=== PATIENT | female | born 1950 | race Caucasian/White ===

== ENCOUNTER 2017-10-24 13:29 | Emergency (ER) | payer OTHER, SELFPAY ==
[2017-10-24 13:34] VITALS: BP 201/95; PULSE 77; RESP 20; TEMP 36.4; O2SAT 96
--- NOTE | 2017-10-24 13:42 | PC.NURSE ---
pt is here to get medication refilled.
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
== END 2017-10-24 15:00 | disposition home or self-care (01) ==
PROVIDERS: Emergency Provider Internal Medicine
DX: F10.239 Alcohol dependence with withdrawal, unspecified (principal)
CPT/HCPCS: 99282

== ENCOUNTER → 2017-12-02 14:20 | Outpatient (CLI) | payer OTHER, SELFPAY ==
[2017-12-02 15:08] LABS: Add Manual Diff / Slide Review NO; Basophils Percent Auto 1.1 % (0-2); Eosinophils Percent Auto 5.1 % (2-4); Hematocrit 41.5 % (36-46); Hemoglobin 14.2 g/dL (12.0-16.0); Lymphocytes Percent Auto 33.7 % (25-40); Mean Corpuscular HGB Conc 34.2 % (30-36); Mean Corpuscular Hemoglobin 31.1 PG (26-34); Mean Corpuscular Volume 90.8 fL (80-100); Monocytes Percent Auto 9.1 % (3-14); Neutrophils Absolute Auto 3200 /uL (3000-5900); Platelet Count 144 X10^3/uL (150-400); Red Blood Cell Count 4.57 X10^6/uL (4.0-5.2); Red Cell Distribution Width 12.9 % (11.6-14.8); White Blood Cell Count 6.3 X10^3/uL (4.5-11.0)
[2017-12-02 15:16] LABS: Hemoglobin A1C% w Est Avg Glu 7.1 % (4.0-6.0)
[2017-12-02 15:24] LABS: Alanine Aminotransferase 37 IU/L (9-52); Albumin Globulin Ratio 1.1 (1.0-2.8); Alkaline Phosphatase 77 U/L (38-126); Aspartate Aminotransferase 37 IU/L (14-36); BUN Creatinine Ratio 18.3 (6-22); Bilirubin Total 0.5 mg/dL (0.2-1.3); Blood Urea Nitrogen 11 mg/dL (7-17); Calcium 8.9 mg/dL (8.4-10.2); Carbon Dioxide 29 mmol/L (22-32); Chloride 103 mmol/L (98-107); Cholesterol 181 mg/dL (140-199); Estimated Glomerular Filt Rate > 60.0 mL/min (>60); Globulin 3.5 g/dL (1.7-4.1); Glucose 192 mg/dL (80-110); HDL Cholesterol 34 mg/dL (40-60); HEMOLYSIS < 15 (0-50); Potassium 3.9 mmol/L (3.4-5.1); Sodium 141 mmol/L (137-145); Total Protein 7.5 g/dL (6.3-8.2); Triglycerides 477 mg/dL (35-150)
== END ==
PROVIDERS: Visit Provider Internal Medicine
DX: Z13.220 Encounter for screening for lipoid disorders (principal); E11.9 Type 2 diabetes mellitus without complications; I25.10 Atherosclerotic heart disease of native coronary artery without angina pectoris
CPT/HCPCS: 36415; 80053; 80061; 83036; 85025

== ENCOUNTER → 2018-01-13 18:00 | Outpatient (CLI) | payer MEDICARE, OTHER, SELFPAY | PROVIDERS: Visit Provider Physician Assistant | DX: R30.0 Dysuria (principal) | CPT/HCPCS: 87077; 87086; 87186 ==

== ENCOUNTER 2018-09-09 15:58 | Emergency (ER) | payer MEDICARE, OTHER, SELFPAY ==
[2018-09-09 16:02] VITALS: BP 158/86; PULSE 71; RESP 20; TEMP 36.8; O2SAT 97; BMI 32.1
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
[2018-09-09 16:52] LABS: INR 1.1 (0.9-1.3); Prothrombin Time 12.2 SECONDS (10.1-12.7)
[2018-09-09 16:55] LABS: Add Manual Diff / Slide Review NO; Basophils Absolute Auto 100 /uL (0-100); Eosinophils Absolute Auto 200 /uL (0-450); Eosinophils Percent Auto 2.7 % (2-4); Hematocrit 44.4 % (36-46); Hemoglobin 15.1 g/dL (12.0-16.0); Lymphocytes Absolute Auto 2500 /uL (1100-4500); Lymphocytes Percent Auto 30.6 % (25-40); Mean Corpuscular Volume 91.2 fL (80-100); Monocytes Absolute Auto 600 /uL (0-900); Neutrophils Absolute Auto 4600 /uL (1500-7000); Neutrophils Percent Auto 57.7 % (50-75); PTT Partial Thromboplastin Tim 36 SECONDS (26.4-36.2); Platelet Count 208 X10^3/uL (150-400); Red Blood Cell Count 4.87 X10^6/uL (4.0-5.2); Red Cell Distribution Width 12.7 % (11.6-14.8)
[2018-09-09 16:56] LABS: Alanine Aminotransferase 36 IU/L (9-52); Albumin Globulin Ratio 1.1 (1.0-2.8); Alkaline Phosphatase 86 U/L (38-126); Aspartate Aminotransferase 39 IU/L (14-36); BUN Creatinine Ratio 21.4 (6-22); Bilirubin Total 0.5 mg/dL (0.2-1.3); Blood Urea Nitrogen 15 mg/dL (7-17); Calcium 9.1 mg/dL (8.4-10.2); Carbon Dioxide 28 mmol/L (22-32); Chloride 106 mmol/L (98-107); Estimated Glomerular Filt Rate > 60.0 mL/min (>60); Globulin 3.7 g/dL (1.7-4.1); Glucose 126 mg/dL (80-110); HEMOLYSIS 16 (0-50); Lipase 153 U/L (23-300); Potassium 4.3 mmol/L (3.4-5.1); Sodium 141 mmol/L (137-145); Total Protein 7.7 g/dL (6.3-8.2)
[2018-09-09 17:33] LABS: RBC Urine None Seen (0-5/HPF)
[2018-09-09 17:46] VITALS: BP 159/89; PULSE 64; RESP 14; TEMP 36.8; O2SAT 96
[2018-09-09 17:51] LABS: Bacteria Urine Many (>30); WBC Urine 1-5/HPF (0-5/HPF)
[2018-09-09 17:52] LABS: Culture Indicated Urine Specimen Cultured
== END 2018-09-09 17:46 | disposition home or self-care (01) ==
PROVIDERS: Emergency Provider Emergency Medicine
DX: K57.92 Diverticulitis of intestine, part unspecified, without perforation or abscess without bleeding (principal); N39.0 Urinary tract infection, site not specified; I10 Essential (primary) hypertension
CPT/HCPCS: 36591; 80053; 81003; 81015; 83690; 85025; 85610; 85730; 87077; 87086; 87186; 93005; 99283; 99284

== ENCOUNTER 2019-03-23 03:02 | Emergency (ER) | payer MEDICARE, OTHER, SELFPAY ==
[2019-03-23 03:09] VITALS: BP 210/88; PULSE 68; RESP 20; TEMP 37; O2SAT 97
--- NOTE | 2019-03-23 03:14 | PC.NURSE ---
Pt Woke up with sob and head tingling. states these are symptoms when her blood pressure is high. Was unable to get BP reading on home machine. Denies any chest pain or any other pain at this time.
--- NOTE | 2019-03-23 03:21 | ED_ITS ---
HPI - General Adult General Chief complaint: Hypertension Stated complaint: high blood pressure Time Seen by Provider: 03/23/19 03:09 Source: patient Mode of arrival: Ambulatory Limitations: no limitations History of Present Illness HPI narrative: 68-year-old female with a history of hypertension. Is on atenolol and lisinopril. States she normally takes her medications at night. She states she did take her medication last night. She stated that as the evening went on she started to get some chest pressure and some tingling in the back of her head. She states that she normally gets the symptoms when her blood pressure elevates. She states that she tried to take her blood pressure at home however would not Renal on her home blood pressure monitor so she came to the emergency department for evaluation. States that she normally runs with systolic blood pressures in the 140s to 150s. States that she really only takes her blood pressure when she feels like this. Related Data Home Medications Medication Instructions Recorded Confirmed albuterol sulfate 1.25 mg INHALATION Q4H PRN 10/04/17 06/29/18 aspirin 325 mg tablet 325 mg PO DAILY 10/04/17 06/29/18 atenolol 50 mg tablet 50 mg PO DAILY 10/04/17 06/29/18 estradiol 1 mg tablet 1 mg PO DAILY 10/04/17 06/29/18 gabapentin 300 mg capsule 900 mg PO TID cap 10/04/17 06/29/18 lisinopril 20 mg tablet 40 mg PO DAILY 10/04/17 06/29/18 metformin 500 mg tablet 500 mg PO QPM tab 10/04/17 06/29/18 zolpidem 5 mg tablet 5 - 10 mg PO BEDTIME PRN 10/04/17 06/29/18 albuterol sulfate 2 puff INHALATION Q4H PRN 10/24/17 06/29/18 lisinopril 20 mg PO QPM 10/24/17 06/29/18 Previous Rx's Medication Instructions Recorded ciprofloxacin HCl 500 mg PO BID #20 tab 09/09/18 metronidazole [Flagyl] 500 mg PO TID #30 tab 09/09/18 Allergies Allergy/AdvReac Type Severity Reaction Status Date / Time cephalexin [From Keflex] Allergy Severe nausea and Verified 09/09/18 16:09 vomiting erythromycin base Allergy Intermediate skin rash, Verified 09/09/18 16:09 hives belladonna alkaloids Allergy Verified 09/09/18 16:09 metoclopramide [From Reglan] Allergy Verified 09/09/18 16:09 prochlorperazine AdvReac Severe psych Verified 09/09/18 16:09 [From Compazine] reaction amlodipine AdvReac Intermediate headache Verified 09/09/18 16:09 and flushing levofloxacin [From Levaquin] AdvReac Intermediate other Verified 09/09/18 16:09 hydrochlorothiazide AdvReac Mild muscle Verified 09/09/18 16:09 cramps nifedipine [From Procardia] AdvReac Unknown intolerance Verified 09/09/18 16:09 Review of Systems Constitutional Constitutional: Denies fatigue and Denies headache(s) ENT Ears, Nose, Mouth, and Throat: Denies headache(s) and Denies sore throat Cardiovascular Comments: Chest pressure Respiratory Respiratory: Denies cough Gastrointestinal Gastrointestinal: Denies abdominal pain, Denies nausea and Denies vomiting Genitourinary Genitourinary: Denies dysuria Musculoskeletal Musculoskeletal: Denies arthralgias Integumentary/Breasts Skin/Breast: Denies rash Neurologic Neurologic: Denies headache(s) Comments: Tingling in her head Endocrine Endocrine: Denies fatigue Hematologic/Lymphatic Hematologic/Lymphatic: Denies easy bleeding and Denies easy bruising Patient History Medical History Chronic pain syndrome (Acute) Hyperlipidemia associated with type 2 diabetes mellitus (Acute) Hypertension associated with diabetes (Acute) Musculoskeletal disorder (Acute) Non-insulin dependent type 2 diabetes mellitus (Acute) Social History Smoking Status: Current every day smoker Smoking Status: Current every day smoker alcohol intake frequency: 0-2 drinks per day Substance Use Type: marijuana Exam Initial Vital Signs Initial Vital Signs: Vital Signs Temperature 98.6 F 03/23/19 03:09 Pulse Rate 68 03/23/19 03:09 Respiratory Rate 20 03/23/19 03:09 Blood Pressure 210/88 H 03/23/19 03:09 Pulse Oximetry 97 03/23/19 03:09 Const General: cooperative and comfortable Orientation: alert and awake HENMT Head: normal to inspection and normocephalic Resp Effort & Inspection: normal respiratory effort Auscultation: clear to auscultation bilaterally Cardio Rate: regular rate Rhythm: regular rhythm Pulses: radial pulses present GI Inspection: non-distended Palpation: soft and No firm Skin Rashes: no rashes Neuro General: alert and awake Cognition: normal cognition Speech: speech normal Extrem General: No edema Psych Appearance: grossly normal and well kempt Course Orders Ordered: ED Orders 03/23/19 03:13 EKG-12 Lead Stat Vital Signs Vital signs: Vital Signs - 8 hr 03/23/19 03:09 03/23/19 03:29 03/23/19 03:47 Temperature 98.6 F Pulse Rate 68 57 L 54 L Respiratory Rate 20 22 16 Blood Pressure 210/88 H Blood Pressure [Right Arm] 182/85 H 157/76 H Pulse Oximetry 97 97 03/23/19 04:13 Temperature Pulse Rate 57 L Respiratory Rate 16 Blood Pressure Blood Pressure [Right Arm] 155/69 H Pulse Oximetry Medical Decision Making ECG Data Attestation: I personally reviewed and interpreted this ECG as follows: Prior ECG tracings: not available for review Interpretation: Sinus bradycardia Ventricular rate of 59 Normal axis Normal QRS Normal QTC No ST T wave changes MDM Narrative Medical decision making narrative: Patient did have slightly elevated blood pressure upon arrival however this improved with placing her in a quiet room with the lights off. She states that her symptoms have completely resolved. Her EKG is unremarkable. Low suspicion for ACS. Low suspicion for interce rebral hemorrhage. We did discuss blood pressure. We discussed importance of taking her blood pressure at home. Will hold on further workup for now. I for follow-up with her primary provider. She expressed understanding and agreement plan. Discharge Plan Departure Patient Disposition: Home Clinical Impression: Hypertension Instructions: DI for High Blood Pressure Activity Restrictions/Additional Instructions: Recommend that you continue all of your medications as directed. Contact your primary provider for follow-up. Return to the emergency department for any new or worsening symptoms Prescriptions: No Action metformin 500 mg tablet 500 mg PO QPM RF: 0 albuterol sulfate 2.5 mg /3 mL (0.083 %) solution for nebulization 1.25 mg INHALATION Q4H PRN (Reason: Shortness Of Breath) RF: 0 aspirin 325 mg tablet 325 mg PO DAILY RF: 0 lisinopril 20 mg tablet 40 mg PO DAILY RF: 0 estradiol [Estrace] 1 mg tablet 1 mg PO DAILY RF: 0 gabapentin 300 mg capsule 900 mg PO TID RF: 0 zolpidem 5 mg tablet 5 - 10 mg PO BEDTIME PRN (Reason: Sleep) RF: 0 atenolol 50 mg tablet 50 mg PO DAILY RF: 0 lisinopril 20 mg Tablet 20 mg PO QPM RF: 0 albuterol sulfate 90 mcg/actuation Hfa Aerosol Inhaler 2 puff INHALATION Q4H PRN (Reason: Wheezing) RF: 0 metronidazole [Flagyl] 500 mg tablet 500 mg PO TID Qty: 30 RF: 0 ciprofloxacin HCl 500 mg tablet 500 mg PO BID Qty: 20 RF: 0
[2019-03-23 03:29] VITALS: BP 182/85; PULSE 57; RESP 22
[2019-03-23 03:47] VITALS: BP 157/76; PULSE 54; RESP 16; O2SAT 97
[2019-03-23 04:13] VITALS: BP 155/69; PULSE 57; RESP 16
== END 2019-03-23 04:29 | disposition home or self-care (01) ==
PROVIDERS: Emergency Provider Emergency Medicine
DX: I10 Essential (primary) hypertension (principal)
CPT/HCPCS: 93005; 93010; 99283

== ENCOUNTER 2019-03-25 15:27 | Emergency (ER) | payer MEDICARE, OTHER, SELFPAY ==
[2019-03-25 15:59] VITALS: BP 183/91; PULSE 62; RESP 18; TEMP 37.1; O2SAT 94; BMI 32.5
--- NOTE | 2019-03-25 16:00 | DI.RAD.S_ITS ---
PROCEDURE: XR CHEST 1V INDICATIONS: chest pain TECHNIQUE: One view of the chest was acquired. COMPARISON: None. FINDINGS: Surgical changes and devices: None. Lungs and pleura: Lungs are clear. No pleural effusions or pneumothorax. Mediastinum: Mediastinal contours appear normal. Heart size is normal. Bones and chest wall: No suspicious bony lesions. Overlying soft tissues appear unremarkable. IMPRESSION: 1. No acute cardiopulmonary disease. Dictated by: Hola Kendrick M.D. on 03/25/2019 at 15:35 Approved by: Hola Kendrick M.D. on 03/25/2019 at 15:36
[2019-03-25 16:36] LABS: Add Manual Diff / Slide Review NO; Basophils Absolute Auto 100 /uL (0-100); Basophils Percent Auto 1.2 % (0-2); Eosinophils Absolute Auto 200 /uL (0-450); Eosinophils Percent Auto 2.9 % (2-4); Hematocrit 43.2 % (36-46); Hemoglobin 15.2 g/dL (12.0-16.0); Lymphocytes Absolute Auto 1700 /uL (1100-4500); Lymphocytes Percent Auto 26.3 % (25-40); Mean Corpuscular HGB Conc 35.1 % (30-36); Mean Corpuscular Hemoglobin 31.5 PG (26-34); Mean Corpuscular Volume 89.7 fL (80-100); Monocytes Absolute Auto 500 /uL (0-900); Neutrophils Absolute Auto 4000 /uL (1500-7000); Neutrophils Percent Auto 61.6 % (50-75); Platelet Count 154 X10^3/uL (150-400); Red Blood Cell Count 4.81 X10^6/uL (4.0-5.2); Red Cell Distribution Width 12.5 % (11.6-14.8); White Blood Cell Count 6.4 X10^3/uL (4.5-11.0)
[2019-03-25 16:40] LABS: INR 1.1 (0.9-1.3); Prothrombin Time 12.5 SECONDS (10.1-12.7)
[2019-03-25 16:43] LABS: PTT Partial Thromboplastin Tim 35 SECONDS (26.4-36.2)
[2019-03-25 16:46] LABS: Alanine Aminotransferase 36 IU/L (<35); Albumin 4.3 g/dL (3.5-5.0); Albumin Globulin Ratio 1.2 (1.0-2.8); Alkaline Phosphatase 85 U/L (38-126); Aspartate Aminotransferase 48 IU/L (14-36); BUN Creatinine Ratio 14.4 (6-22); Bilirubin Total 1.1 mg/dL (0.2-1.3); Blood Urea Nitrogen 13 mg/dL (7-17); Calcium 9.5 mg/dL (8.4-10.2); Carbon Dioxide 29 mmol/L (22-32); Chloride 102 mmol/L (98-107); Creatine Kinase 61 U/L (30-135); Estimated Glomerular Filt Rate > 60.0 mL/min (>60); Globulin 3.6 g/dL (1.7-4.1); Glucose 161 mg/dL (80-110); HEMOLYSIS < 15 (0-50); Lipase 121 U/L (23-300); Potassium 3.8 mmol/L (3.4-5.1); Sodium 142 mmol/L (137-145); Total Protein 7.9 g/dL (6.3-8.2)
[2019-03-25 16:57] LABS: Troponin I < 0.012 ng/mL (0.01-0.034)
[2019-03-25 17:10] VITALS: BP 158/76; PULSE 57; RESP 18; O2SAT 98
--- NOTE | 2019-03-25 17:50 | DI.CT.S_ITS ---
PROCEDURE: CT HEAD/BRAIN WO CON INDICATIONS: hypertension, with headache, blurry vision TECHNIQUE: Noncontrast 4.5 mm thick angled axial sections acquired from the foramen magnum to the vertex, with coronal and sagittal reformats. For radiation dose reduction, the following was used: automated exposure control, adjustment of mA and/or kV according to patient size. COMPARISON: None. FINDINGS: Image quality: Excellent. CSF spaces: Basal cisterns are patent. No extra-axial fluid collections. The ventricles are symmetric in size and shape. Brain: No intracranial bleeds or masses. There is cerebral volume loss for age, with resultant ventricular and sulcal prominence. There are periventricular and deep white matter chronic small vessel ischemic changes. There is intracranial internal carotid artery atherosclerosis. Skull and face: Calvarium and visualized facial bones appear intact, without suspicious lesions. Sinuses: Visualized sinuses and mastoids are clear. IMPRESSION: No CT evidence of acute intracranial pathology. Dictated by: Lior Lee M.D. on 03/25/2019 at 18:58 Approved by: Lior Lee M.D. on 03/25/2019 at 18:59
--- NOTE | 2019-03-25 17:54 | ED.GENADULT ---
HPI - General Adult <Maddison Mccauley STAMPING OPERATOR-BC - Last Filed: 03/25/19 19:55> General Chief complaint: Hypertension Stated complaint: High BP 226/110 Time Seen by Provider: 03/25/19 17:25 Source: patient and family Mode of arrival: Ambulatory Limitations: no limitations History of Present Illness HPI narrative: The patient is a 68-year-old female current smoker with history of hypertension who presents with a chief complaint of hypertension. She was at this facility on 03/23 with similar complaints. She takes atenolol and lisinopril every day. Since her visit 2 days ago, she has increased her lisinopril to 20 mg b.i.d. on her own accord. She also takes atenolol 50 mg daily. She states that she feels her blood pressure rise at home, that has blurry vision, head tingling and shortness of breath with chest pain. She currently denies blurry vision severe headache shortness of breath or chest pain. She states that her blood pressure has decreased since her arrival to the emergency department and she feels much better. She states she has not followed up with primary care provider regarding her hypertension since her previous visit. She states that since her visit on Tuesday, she has been taking her blood pressure every hour with her wrist home monitor. Related Data Home Medications Medication Instructions Recorded Confirmed albuterol sulfate 1.25 mg INHALATION Q4H PRN 10/04/17 06/29/18 aspirin 325 mg tablet 325 mg PO DAILY 10/04/17 06/29/18 atenolol 50 mg tablet 50 mg PO DAILY 10/04/17 06/29/18 estradiol 1 mg tablet 1 mg PO DAILY 10/04/17 06/29/18 gabapentin 300 mg capsule 900 mg PO TID cap 10/04/17 06/29/18 lisinopril 20 mg tablet 40 mg PO DAILY 10/04/17 06/29/18 metformin 500 mg tablet 500 mg PO QPM tab 10/04/17 06/29/18 zolpidem 5 mg tablet 5 - 10 mg PO BEDTIME PRN 10/04/17 06/29/18 albuterol sulfate 2 puff INHALATION Q4H PRN 10/24/17 06/29/18 lisinopril 20 mg PO QPM 10/24/17 06/29/18 Previous Rx's Medication Instructions Recorded ciprofloxacin HCl 500 mg PO BID #20 tab 09/09/18 metronidazole [Flagyl] 500 mg PO TID #30 tab 09/09/18 Allergies Allergy/AdvReac Type Severity Reaction Status Date / Time cephalexin [From Keflex] Allergy Severe nausea and Verified 09/09/18 16:09 vomiting erythromycin base Allergy Intermediate skin rash, Verified 09/09/18 16:09 hives belladonna alkaloids Allergy Verified 09/09/18 16:09 metoclopramide [From Reglan] Allergy Verified 09/09/18 16:09 prochlorperazine AdvReac Severe psych Verified 09/09/18 16:09 [From Compazine] reaction amlodipine AdvReac Intermediate headache Verified 09/09/18 16:09 and flushing levofloxacin [From Levaquin] AdvReac Intermediate other Verified 09/09/18 16:09 hydrochlorothiazide AdvReac Mild muscle Verified 09/09/18 16:09 cramps nifedipine [From Procardia] AdvReac Unknown intolerance Verified 09/09/18 16:09 Review of Systems <ONUR Kamara - Last Filed: 03/25/19 19:55> Review of Systems Narrative: GENERAL: Denies chills, fatigue, malaise, fever, sweats. HEENT: Denies sinus pain, ear pain, sore throat, difficulty swallowing, dizziness. RESPIRATORY: Denies dyspnea, cough, wheezing, hemoptysis, sputum. CARDIOVASCULAR: See HPI GASTROINTESTINAL: Denies nausea, vomiting, abdominal pain, diarrhea, constipation, melena. : Denies dysuria, frequency, incontinence, hematuria, urinary retention. MUSCULOSKELETAL: denies weakness, joint pain, or bony pain SKIN: Denies rash, skin lesions, or other NEUROLOGIC: See HPI PSYCHIATRIC: No concerning psychosocial issues. 12 point review of systems is negative except for those stated above Patient History <ONUR Kamara - Last Filed: 03/25/19 19:55> Medical History Chronic pain syndrome (Acute) Hyperlipidemia associated with type 2 diabetes mellitus (Acute) Hypertension associated with diabetes (Acute) Musculoskeletal disorder (Acute) Non-insulin dependent type 2 diabetes mellitus (Acute) Surgical History H/O hysterectomy with oophorectomy (Acute) Social History Smoking Status: Current every day smoker Smoking Status: Current every day smoker alcohol intake frequency: 0-2 drinks per day Substance Use Type: marijuana Exam <ONUR Kamara - Last Filed: 03/25/19 19:55> Narrative Exam Narrative: GENERAL: This is a well-nourished, well-developed patient, in no acute distress HEAD: Atraumatic. Normocephalic. No temporal or scalp tenderness. EYES: Pupils equal round and reactive. Extraocular motions intact. No scleral icterus. No injection or drainage. ENT: Nose without bleeding, purulent drainage or septal hematoma. Throat without erythema, tonsillar hypertrophy or exudate. Uvula midline. Airway patent. NECK: Trachea midline. No JVD or lymphadenopathy. Supple, nontender, no meningeal signs. CARDIOVASCULAR: Regular rate and rhythm without murmurs, gallops, or rubs. RESPIRATORY: Clear to auscultation. Breath sounds equal bilaterally. No wheezes, rales, or rhonchi. No cough. No increased respiratory effort. No accessory muscle use. GASTROINTESTINAL: Abdomen soft, non-tender, nondistended. No hepato-splenomegaly, or palpable masses. No guarding. EXTREMITIES: No clubbing, cyanosis, or edema. No joint tenderness, effusion, or edema noted. BACK: Nontender without deformity or crepitance. No flank tenderness. NEURO: AOx3. Stable gait. Strength is equal upper and lower extremities bilaterally. Clear speech. No gross cranial nerve deficit SKIN: No rash or erythema visible skin Initial Vital Signs Initial Vital Signs: Vital Signs Temperature 98.7 F 03/25/19 15:59 Pulse Rate 62 03/25/19 15:59 Respiratory Rate 18 03/25/19 15:59 Blood Pressure 183/91 H 03/25/19 15:59 Pulse Oximetry 94 03/25/19 15:59 <Gunnar Sim MD - Last Filed: 03/26/19 00:37> Initial Vital Signs Initial Vital Signs: Vital Signs Temperature 98.7 F 03/25/19 15:59 Pulse Rate 62 03/25/19 15:59 Respiratory Rate 18 03/25/19 15:59 Blood Pressure 183/91 H 03/25/19 15:59 Pulse Oximetry 94 03/25/19 15:59 Scores <ONUR Kamara - Last Filed: 03/25/19 19:55> GCS [place] coma scale eye opening: Spontaneous [place] coma scale verbal response: Orientated [place] coma scale motor response: Obey commands [place] coma scale total score: 15 Course <ONUR Kamara - Last Filed: 03/25/19 19:55> Orders Ordered: ED Orders 03/25/19 16:00 XR chest 1V Stat EKG-12 Lead Stat 03/25/19 16:24 Complete Blood Count AUTO DIFF Stat Comprehensive Metabolic Panel Stat Lipase Stat Partial Thromboplastin Time Stat Prothrombin Time INR Stat Troponin & CK Cardiac Panel Stat 03/25/19 17:50 CT head/brain wo con Stat 03/25/19 18:55 Troponin & CK Cardiac Panel Stat Vital Signs Vital signs: Vital Signs - 8 hr 03/25/19 17:10 03/25/19 18:49 03/25/19 20:20 Pulse Rate 57 L 62 65 Respiratory Rate 18 Blood Pressure 182/87 H Blood Pressure [Left Arm] 158/76 H 189/76 H Pulse Oximetry 98 97 <Gunnar Sim MD - Last Filed: 03/26/19 00:37> Orders Ordered: ED Orders 03/25/19 16:00 XR chest 1V Stat EKG-12 Lead Stat 03/25/19 16:24 Complete Blood Count AUTO DIFF Stat Comprehensive Metabolic Panel Stat Lipase Stat Partial Thromboplastin Time Stat Prothrombin Time INR Stat Troponin & CK Cardiac Panel Stat 03/25/19 17:50 CT head/brain wo con Stat 03/25/19 18:55 Troponin & CK Cardiac Panel Stat Vital Signs Vital signs: Vital Signs - 8 hr 03/25/19 17:10 03/25/19 18:49 03/25/19 20:20 Pulse Rate 57 L 62 65 Respiratory Rate 18 Blood Pressure 182/87 H Blood Pressure [Left Arm] 158/76 H 189/76 H Pulse Oximetry 98 97 Medical Decision Making <ONUR Kamara - Last Filed: 03/25/19 19:55> Lab Data Result diagrams: 03/25/19 16:24 03/25/19 16:24 Labs: Lab Results 03/25/19 03/25/19 03/25/19 Range/Units 16:24 16:24 16:24 WBC 6.4 (4.5-11.0) X10^3/uL RBC 4.81 (4.0-5.2) X10^6/uL Hgb 15.2 (12.0-16.0) g/dL Hct 43.2 (36-46) % MCV 89.7 (80-100) fL MCH 31.5 (26-34) PG MCHC 35.1 (30-36) % RDW 12.5 (11.6-14.8) % Plt Count 154 (150-400) X10^3/uL Neut % (Auto) 61.6 (50-75) % Lymph % (Auto) 26.3 (25-40) % [place] % (Auto) 8.0 (3-14) % Eos % (Auto) 2.9 (2-4) % Baso % (Auto) 1.2 (0-2) % Neut # (Auto) 4000 (0908-2674) /uL Lymph # (Auto) 1700 (5131-4815) /uL [place] # (Auto) 500 (0-900) /uL Eos # (Auto) 200 (0-450) /uL Baso # (Auto) 100 (0-100) /uL PT 12.5 (10.1-12.7) SECONDS INR 1.1 (0.9-1.3) APTT 35 (26.4-36.2) SECONDS Sodium 142 (137-145) mmol/L Potassium 3.8 (3.4-5.1) mmol/L Chloride 102 (98-107) mmol/L Carbon Dioxide 29 (22-32) mmol/L BUN 13 (7-17) mg/dL Creatinine 0.90 (0.52-1.04) mg/dL Estimated GFR > 60.0 (>60) mL/min BUN/Creatinine Ratio 14.4 (6-22) Glucose 161 H (80-110) mg/dL Calcium 9.5 (8.4-10.2) mg/dL Total Bilirubin 1.1 (0.2-1.3) mg/dL AST 48 H (14-36) IU/L ALT 36 H (<35) IU/L Alkaline Phosphatase 85 (38-126) U/L Total Creatine Kinase 61 (30-135) U/L CK-MB (CK-2) TNP CK-MB (CK-2) Rel Index TNP Troponin I < 0.012 (0.01-0.034) ng/mL Total Protein 7.9 (6.3-8.2) g/dL Albumin 4.3 (3.5-5.0) g/dL Globulin 3.6 (1.7-4.1) g/dL Albumin/Globulin Ratio 1.2 (1.0-2.8) Lipase 121 (23-300) U/L // Range/Units 18:55 WBC (4.5-11.0) X10^3/uL RBC (4.0-5.2) X10^6/uL Hgb (12.0-16.0) g/dL Hct (36-46) % MCV (80-100) fL MCH (26-34) PG MCHC (30-36) % RDW (11.6-14.8) % Plt Count (150-400) X10^3/uL Neut % (Auto) (50-75) % Lymph % (Auto) (25-40) % [place] % (Auto) (3-14) % Eos % (Auto) (2-4) % Baso % (Auto) (0-2) % Neut # (Auto) (1487-3434) /uL Lymph # (Auto) (2594-5537) /uL [place] # (Auto) (0-900) /uL Eos # (Auto) (0-450) /uL Baso # (Auto) (0-100) /uL PT (10.1-12.7) SECONDS INR (0.9-1.3) APTT (26.4-36.2) SECONDS Sodium (137-145) mmol/L Potassium (3.4-5.1) mmol/L Chloride (98-107) mmol/L Carbon Dioxide (22-32) mmol/L BUN (7-17) mg/dL Creatinine (0.52-1.04) mg/dL Estimated GFR (>60) mL/min BUN/Creatinine Ratio (6-22) Glucose (80-110) mg/dL Calcium (8.4-10.2) mg/dL Total Bilirubin (0.2-1.3) mg/dL AST (14-36) IU/L ALT (<35) IU/L Alkaline Phosphatase (38-126) U/L Total Creatine Kinase 55 (30-135) U/L CK-MB (CK-2) TNP CK-MB (CK-2) Rel Index TNP Troponin I < 0.012 (0.01-0.034) ng/mL Total Protein (6.3-8.2) g/dL Albumin (3.5-5.0) g/dL Globulin (1.7-4.1) g/dL Albumin/Globulin Ratio (1.0-2.8) Lipase (23-300) U/L Imaging Data head CT: Radiologist's impression: Karina Flaherty 68 F 1950 [place] [address] CT Scan Report Signed Patient: Karina Flaherty AMR#: [id number] : 1950cct:[id number] Age/Sex: 68 / FDate of Service: 03/25/19 Loc: ED Accession Number: [id number] Procedure: CT head/brain wo con Ordering Provider: Maddison Mccauley PROCEDURE: CT HEAD/BRAIN WO CON INDICATIONS: hypertension, with headache, blurry vision TECHNIQUE: Noncontrast 4.5 mm thick angled axial sections acquired from the foramen magnum to the vertex, with coronal and sagittal reformats. For radiation dose reduction, the following was used: automated exposure control, adjustment of mA and/or kV according to patient size. COMPARISON: None. FINDINGS: Image quality: Excellent. CSF spaces: Basal cisterns are patent. No extra-axial fluid collections. The ventricles are symmetric in size and shape. Brain: No intracranial bleeds or masses. There is cerebral volume loss for age, with resultant ventricular and sulcal prominence. There are periventricular and deep white matter chronic small vessel ischemic changes. There is intracranial internal carotid artery atherosclerosis. Skull and face: Calvarium and visualized facial bones appear intact, without suspicious lesions. Sinuses: Visualized sinuses and mastoids are clear. IMPRESSION: No CT evidence of acute intracranial pathology. Dictated by: Lior Lee M.D. on 03/25/2019 at 18:58 Approved by: Lior Lee M.D. on 03/25/2019 at 18:59 Chest x-ray: Radiologist's impression: Karina Flaherty 68 F [address] [address] XRay Report Signed Patient: Karina Flaherty AMR#: [id number] : 3Acct:[id number] Age/Sex: 68 / FDate of Service: 03/25/19 Loc: ED Accession Number: [id number] Procedure: XR chest 1V Ordering Provider: Angela Andersen MD PROCEDURE: XR CHEST 1V INDICATIONS: chest pain TECHNIQUE: One view of the chest was acquired. COMPARISON: None. FINDINGS: Surgical changes and devices: None. Lungs and pleura: Lungs are clear. No pleural effusions or pneumothorax. Mediastinum: Mediastinal contours appear normal. Heart size is normal. Bones and chest wall: No suspicious bony lesions. Overlying soft tissues appear unremarkable. IMPRESSION: 1. No acute cardiopulmonary disease. Dictated by: Hola Kendrick M.D. on 03/25/2019 at 15:35 Approved by: Hola Kendrick M.D. on 03/25/2019 at 15:36 ECG Data Attestation: I personally reviewed and interpreted this ECG as follows: Interpretation: Sinus bradycardia. Ventricular right 57. P.r. interval 148. QRS duration 103. No ST elevation or depression. No ectopy noted. Viewed by Dr. Nathaly VERONICA Narrative Medical decision making narrative: The patient is a 68-year-old female who presents with a chief complaint of hypertension at home. She has 2 negative troponins, I did obtain a head CT given her previous complains of blurry vision and headache. This came back with no acute findings. She was measuring her blood pressures at home with a wrist monitor. I asked nursing to go over teaching and correlate her home monitor with our monitor. The patient was reportedly taking her blood pressure while lying flat on her back with her arm outstretched over the side of the stretcher. At that point her blood pressure was 210/100 in that position, but when she took with the correct position her blood pressure correlated with our monitor, at a much more moderate blood pressure. Given that her blood pressure is 150 systolic, 60 diastolic on my exam, not comfortable increasing her blood pressure medication. However I do think that she needs to follow up with primary care provider in the next few days. Given her normal EKG and 2 normal troponins, she has low risk of ACS. She is requesting to go home multiple times. I discussed at length coming back to the ER for any acute concerns such as chest pain, shortness of breath, concern of heart attack or stroke but also that she needs strict follow-up with primary care provider in the next day. She states she will call him in the morning. Patient states understanding of return precautions as well as follow-up care and has no questions or concerns upon discharge. <Gunnar Sim MD - Last Filed: 03/26/19 00:37> Lab Data Labs: Lab Results 03/25/19 03/25/19 03/25/19 Range/Units 16:24 16:24 16:24 WBC 6.4 (4.5-11.0) X10^3/uL RBC 4.81 (4.0-5.2) X10^6/uL Hgb 15.2 (12.0-16.0) g/dL Hct 43.2 (36-46) % MCV 89.7 (80-100) fL MCH 31.5 (26-34) PG MCHC 35.1 (30-36) % RDW 12.5 (11.6-14.8) % Plt Count 154 (150-400) X10^3/uL Neut % (Auto) 61.6 (50-75) % Lymph % (Auto) 26.3 (25-40) % [place] % (Auto) 8.0 (3-14) % Eos % (Auto) 2.9 (2-4) % Baso % (Auto) 1.2 (0-2) % Neut # (Auto) 4000 (1733-5694) /uL Lymph # (Auto) 1700 (2990-0754) /uL [place] # (Auto) 500 (0-900) /uL Eos # (Auto) 200 (0-450) /uL Baso # (Auto) 100 (0-100) /uL PT 12.5 (10.1-12.7) SECONDS INR 1.1 (0.9-1.3) APTT 35 (26.4-36.2) SECONDS Sodium 142 (137-145) mmol/L Potassium 3.8 (3.4-5.1) mmol/L Chloride 102 (98-107) mmol/L Carbon Dioxide 29 (22-32) mmol/L BUN 13 (7-17) mg/dL Creatinine 0.90 (0.52-1.04) mg/dL Estimated GFR > 60.0 (>60) mL/min BUN/Creatinine Ratio 14.4 (6-22) Glucose 161 H (80-110) mg/dL Calcium 9.5 (8.4-10.2) mg/dL Total Bilirubin 1.1 (0.2-1.3) mg/dL AST 48 H (14-36) IU/L ALT 36 H (<35) IU/L Alkaline Phosphatase 85 (38-126) U/L Total Creatine Kinase 61 (30-135) U/L CK-MB (CK-2) TNP CK-MB (CK-2) Rel Index TNP Troponin I < 0.012 (0.01-0.034) ng/mL Total Protein 7.9 (6.3-8.2) g/dL Albumin 4.3 (3.5-5.0) g/dL Globulin 3.6 (1.7-4.1) g/dL Albumin/Globulin Ratio 1.2 (1.0-2.8) Lipase 121 (23-300) U/L /15/ Range/Units 18:55 WBC (4.5-11.0) X10^3/uL RBC (4.0-5.2) X10^6/uL Hgb (12.0-16.0) g/dL Hct (36-46) % MCV (80-100) fL MCH (26-34) PG MCHC (30-36) % RDW (11.6-14.8) % Plt Count (150-400) X10^3/uL Neut % (Auto) (50-75) % Lymph % (Auto) (25-40) % [place] % (Auto) (3-14) % Eos % (Auto) (2-4) % Baso % (Auto) (0-2) % Neut # (Auto) (8837-7454) /uL Lymph # (Auto) (9691-7759) /uL [place] # (Auto) (0-900) /uL Eos # (Auto) (0-450) /uL Baso # (Auto) (0-100) /uL PT (10.1-12.7) SECONDS INR (0.9-1.3) APTT (26.4-36.2) SECONDS Sodium (137-145) mmol/L Potassium (3.4-5.1) mmol/L Chloride (98-107) mmol/L Carbon Dioxide (22-32) mmol/L BUN (7-17) mg/dL Creatinine (0.52-1.04) mg/dL Estimated GFR (>60) mL/min BUN/Creatinine Ratio (6-22) Glucose (80-110) mg/dL Calcium (8.4-10.2) mg/dL Total Bilirubin (0.2-1.3) mg/dL AST (14-36) IU/L ALT (<35) IU/L Alkaline Phosphatase (38-126) U/L Total Creatine Kinase 55 (30-135) U/L CK-MB (CK-2) TNP CK-MB (CK-2) Rel Index TNP Troponin I < 0.012 (0.01-0.034) ng/mL Total Protein (6.3-8.2) g/dL Albumin (3.5-5.0) g/dL Globulin (1.7-4.1) g/dL Albumin/Globulin Ratio (1.0-2.8) Lipase (23-300) U/L Discharge Plan Departure Patient Disposition: Home Clinical Impression: Hypertension Qualifiers: Hypertension type: unspecified Qualified Code(s): I10 - Essential (primary) hypertension Discharge Date/Time: 03/25/19 20:22 Instructions: DI for High Blood Pressure Activity Restrictions/Additional Instructions: Please follow-up with primary care provider tomorrow. Your lab work came back normal, your head CT and chest x-ray came back with no acute findings It is possible that your blood pressures at home are falsely elevated due to positioning or inaccuracy of your blood pressure cuff. Please come back to the emergency department for any acute concerns such as chest pain, shortness of breath heart attack or stroke. Prescriptions: No Action metformin 500 mg tablet 500 mg PO QPM RF: 0 albuterol sulfate 2.5 mg /3 mL (0.083 %) solution for nebulization 1.25 mg INHALATION Q4H PRN (Reason: Shortness Of Breath) RF: 0 aspirin 325 mg tablet 325 mg PO DAILY RF: 0 lisinopril 20 mg tablet 40 mg PO DAILY RF: 0 estradiol [Estrace] 1 mg tablet 1 mg PO DAILY RF: 0 gabapentin 300 mg capsule 900 mg PO TID RF: 0 zolpidem 5 mg tablet 5 - 10 mg PO BEDTIME PRN (Reason: Sleep) RF: 0 atenolol 50 mg tablet 50 mg PO DAILY RF: 0 lisinopril 20 mg Tablet 20 mg PO QPM RF: 0 albuterol sulfate 90 mcg/actuation Hfa Aerosol Inhaler 2 puff INHALATION Q4H PRN (Reason: Wheezing) RF: 0 metronidazole [Flagyl] 500 mg tablet 500 mg PO TID Qty: 30 RF: 0 ciprofloxacin HCl 500 mg tablet 500 mg PO BID Qty: 20 RF: 0
[2019-03-25 18:49] VITALS: BP 189/76; PULSE 62
--- NOTE | 2019-03-25 18:50 | PC.NURSE ---
Asked pt to check BP using own monitor how she does at home. Pt laying down and has wrist cuff at side. Pt reading 216/113. Rechecked with our cuff and got 189/76. Instructed pt on proper use of her own BP cuff with feet on floor and wrist at heart and pt got numbers of 162/80. Pt verbalizes understanding of proper use and understands complications of wrist BP cuff.
[2019-03-25 19:14] LABS: Creatine Kinase 55 U/L (30-135)
[2019-03-25 19:26] LABS: Troponin I < 0.012 ng/mL (0.01-0.034)
[2019-03-25 20:20] VITALS: BP 182/87; PULSE 65; O2SAT 97
== END 2019-03-25 20:22 | disposition home or self-care (01) ==
PROVIDERS: Emergency Medicine; Emergency Provider Nurse Practitioner Family
DX: I10 Essential (primary) hypertension (principal); R00.1 Bradycardia, unspecified; R07.9 Chest pain, unspecified; R51 Headache
CPT/HCPCS: 36415; 70450; 71045; 80053; 82550; 83690; 84484; 85025; 85610; 85730; 93005; 93010; 99284; 99285

== ENCOUNTER → 2019-06-06 12:34 | Outpatient (CLI) | payer MEDICARE, OTHER, SELFPAY ==
[2019-06-06 13:49] LABS: Aspartate Aminotransferase 34 IU/L (14-36); BUN Creatinine Ratio 16.3 (6-22); Blood Urea Nitrogen 13 mg/dL (7-17); Calcium 9.7 mg/dL (8.4-10.2); Carbon Dioxide 28 mmol/L (22-32); Chloride 104 mmol/L (98-107); Cholesterol 230 mg/dL (140-199); Estimated Glomerular Filt Rate > 60.0 mL/min (>60); Glucose 186 mg/dL (80-110); HDL Cholesterol 40 mg/dL (40-60); HEMOLYSIS < 15 (0-50); LDL Cholesterol Calculated 135 mg/dL (<100); Potassium 4.5 mmol/L (3.4-5.1); Sodium 142 mmol/L (137-145); Triglycerides 275 mg/dL (35-150)
[2019-06-06 14:16] LABS: TSH w/ Reflex to FT4 2.08 uIU/mL (0.47-4.68)
== END ==
PROVIDERS: PCP Internal Medicine; Referring Provider Internal Medicine; Visit Provider Internal Medicine
DX: E11.9 Type 2 diabetes mellitus without complications (principal); I10 Essential (primary) hypertension; E78.2 Mixed hyperlipidemia
CPT/HCPCS: 36415; 80048; 80061; 83036; 84443; 84450

== ENCOUNTER → 2020-03-07 18:51 | Outpatient (ROUT) | payer MEDICARE, OTHER, SELFPAY | PROVIDERS: PCP Internal Medicine; Visit Provider Family Medicine | DX: N39.0 Urinary tract infection, site not specified (principal) | CPT/HCPCS: 87077; 87086; 87186 ==

== ENCOUNTER 2020-03-24 07:32 | Emergency (ER) | payer MEDICARE, OTHER, SELFPAY ==
[2020-03-24 07:35] VITALS: BP 145/85; PULSE 68; RESP 18; TEMP 37.3; O2SAT 95; BMI 32.5
[2020-03-24 07:40] VITALS: BP 146/85; PULSE 68; O2SAT 96
--- NOTE | 2020-03-24 07:56 | PC.NURSE ---
urine was orange in color, pt took AZO last night and this am.
[2020-03-24 08:00] VITALS: PULSE 62; O2SAT 95
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
--- NOTE | 2020-03-24 08:16 | DI.CT.S_ITS ---
PROCEDURE: CT KIDNEY URETER BLADDER (KUB) INDICATIONS: Right flank pain, ? stone, pyelo, appy TECHNIQUE: Noncontrast 5 mm thick sections acquired from the diaphragms to the symphysis. 5 mm thick coronal and sagittal reformats were then performed. For radiation dose reduction, the following was used: automated exposure control, adjustment of mA and/or kV according to patient size. COMPARISON: None. FINDINGS: Image quality: Excellent. Lung bases: Lung bases are clear. Heart size is normal. Urinary system: Both kidneys are normal in size. No kidney stones. No hydronephrosis or perinephric fat stranding. Both ureters appear non-dilated throughout their expected courses. Bladder wall thickness is normal; no calcified bladder stones. Other solid organs: Liver is normal in size. Gallbladder contains a large calcified gallstone. No gallbladder wall thickening.. Pancreas is normal in contours. Spleen is normal in size. No adrenal nodules. Peritoneum and bowel: Unenhanced bowel loops demonstrate normal wall thickness and caliber. No free fluid or air. The appendix is not identified. There are no secondary signs of acute appendicitis. Sigmoid diverticulosis without evidence of diverticulitis. Nodes and vessels: No retroperitoneal or mesenteric adenopathy by size criteria. Aorta and inferior vena cava are normal in caliber. Incidental note is made of the presence of a calcification within the right gonadal vein at the level of L4-L5 which measures 1 cm in diameter. The right gonadal vein is otherwise normal caliber. 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 Abdominal wall: No ventral hernias. Pelvis: No free pelvic fluid. No inguinal hernias or adenopathy. Bones: No suspicious bony lesions. No vertebral body compression fractures. There is lumbar degenerative change and canal stenosis at L3-L4 and L4-L5. Canal stenosis at L3-L4 is severe. Canal stenosis at L4-L5 is likely moderate to severe. IMPRESSION: 1. No evidence of renal stone, ureteral stone, or hydronephrosis. 2. No evidence of acute appendicitis. 3. 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 Cholelithiasis. 5. Significant lumbar canal stenosis at L3-L4 and L4-L5. 6. Diverticulosis. Dictated by: Kwabena Vasquez M.D. on 03/24/2020 at 8:42 Approved by: Kwabena Vasquez M.D. on 03/24/2020 at 8:50
[2020-03-24 08:18] LABS: RBC Urine None Seen (0-5/HPF)
--- NOTE | 2020-03-24 08:23 | PC.NURSE ---
2 failed attempts at iv access, 2x2 placed.
[2020-03-24 08:26] LABS: Appearance Urine UA SL CLOUDY; Bilirubin Urine UA NEGATIVE (NEGATIVE); Color Urine UA RED; Glucose Urine UA TRACE g/dL (Negative); Ketones Urine UA TRACE (NEGATIVE); Leukocyte Esterase Urine UA 2+ (NEGATIVE); Nitrite Urine UA POSITIVE (Negative); Occult Blood Urine UA NEGATIVE (Negative); Protein Urine UA 2+ (Negative)
[2020-03-24 08:29] LABS: Squamous Epithelial Cell Urine 5-10 /HPF (0-5/HPF); WBC Urine 5-10/HPF (0-5/HPF)
[2020-03-24 08:30] LABS: Bacteria Urine Many (>30); Culture Indicated Urine Cult Not Indicated
[2020-03-24 08:50] VITALS: PULSE 59; O2SAT 95
[2020-03-24 08:55] LABS: Add Manual Diff / Slide Review NO; Basophils Absolute Auto 100 /uL (0-100); Basophils Percent Auto 1.1 % (0-2); Eosinophils Absolute Auto 300 /uL (0-450); Eosinophils Percent Auto 2.9 % (2-4); Hematocrit 42.9 % (36-46); Hemoglobin 14.5 g/dL (12.0-16.0); Lymphocytes Absolute Auto 3000 /uL (1100-4500); Mean Corpuscular HGB Conc 33.8 % (30-36); Mean Corpuscular Hemoglobin 30.9 PG (26-34); Mean Corpuscular Volume 91.3 fL (80-100); Monocytes Absolute Auto 800 /uL (0-900); Monocytes Percent Auto 8.2 % (3-14); Neutrophils Absolute Auto 5200 /uL (1500-7000); Neutrophils Percent Auto 55.8 % (50-75); Platelet Count 191 X10^3/uL (150-400); Red Cell Distribution Width 12.7 % (11.6-14.8); White Blood Cell Count 9.2 X10^3/uL (4.5-11.0)
[2020-03-24 09:04] LABS: Alanine Aminotransferase 24 IU/L (<35); Albumin 4.2 g/dL (3.5-5.0); Alkaline Phosphatase 102 U/L (38-126); Aspartate Aminotransferase 37 IU/L (14-36); BUN Creatinine Ratio 18.6 (6-22); Bilirubin Total 1.5 mg/dL (0.2-1.3); Blood Urea Nitrogen 18 mg/dL (7-17); Calcium 9.3 mg/dL (8.4-10.2); Carbon Dioxide 28 mmol/L (22-32); Chloride 102 mmol/L (98-107); Estimated Glomerular Filt Rate 57.3 mL/min (>60); Globulin 4.1 g/dL (1.7-4.1); Glucose 131 mg/dL (80-110); HEMOLYSIS < 15 (0-50); Lipase 214 U/L (23-300); Potassium 4.3 mmol/L (3.4-5.1); Sodium 138 mmol/L (137-145); Total Protein 8.3 g/dL (6.3-8.2)
[2020-03-24] MEDS: KETOROLAC 60 MG/2 ML VIAL 15 MG IV (09:09)
[2020-03-24] MEDS: SODIUM CHLORIDE 0.9% 1,000 ML 1000 ML IV (09:11)
[2020-03-24] MEDS: ONDANSETRON 4 MG/2 ML INJ IV (09:11)
[2020-03-24] MEDS: CEFTRIAXONE 2 GM/50 ML FROZ.PIGGY IV (09:58)
[2020-03-24 10:45] VITALS: BP 172/77; PULSE 57; RESP 14; O2SAT 96
== END 2020-03-24 11:00 | disposition home or self-care (01) ==
PROVIDERS: Emergency Provider Emergency Medicine; PCP Internal Medicine
DX: N30.01 Acute cystitis with hematuria (principal); K80.20 Calculus of gallbladder without cholecystitis without obstruction; E11.9 Type 2 diabetes mellitus without complications; I10 Essential (primary) hypertension; E78.5 Hyperlipidemia, unspecified
CPT/HCPCS: 74176; 80053; 81001; 83605; 83690; 85025; 87040; 96365; 96375; 99283; 99284; J0696; J1885; J2405

== ENCOUNTER 2021-03-05 14:45 | Emergency (ER) | payer MEDICARE, OTHER, SELFPAY ==
[2021-03-05 14:58] VITALS: BP 217/108; PULSE 88; RESP 20; TEMP 37.4; O2SAT 96; BMI 32.5
--- NOTE | 2021-03-05 15:51 | ED_ITS ---
HPI - General Adult <Peter Carney PA-C - Last Filed: 03/05/21 19:43> General Chief complaint: Hypertension Stated complaint: Sugar is 431 Time Seen by Provider: 03/05/21 15:06 Source: patient Mode of arrival: Family Vehicle Limitations: no limitations History of Present Illness HPI narrative: Patient is a 70-year-old with history of type 2 diabetes presenting to the emergency department today for evaluation of hyperglycemia. Patient states that she checked her blood sugar today and noticed that it was 431. She states that she checks her blood sugar once weekly and states that she does not take medications for management of her diabetes mellitus. She explains that 2 days ago she began to experience intermittent episodes of diaphoresis and has experienced 3 total episodes of nonbloody non bilious vomiting over the past 2 days. Additionally, she reports 2 days of urinary frequency and blurry vision. Of note, patient states that her last A1c at the primary care office returned 8.1. She denies fever, chills, chest pain, shortness of breath, abdominal pain, diarrhea, constipation, dysuria, hematuria, confusion, dizziness, changes in hearing. She notes that she was diagnosed originally with type 2 diabetes approximately 30 years ago and was started on glipizide and metformin, she states that she did not like the way that she felt while taking the medications so she has discontinued them altogether. No other concerns voiced at this time. Related Data Home Medications Medication Instructions Recorded Confirmed albuterol sulfate 1.25 mg INHALATION Q4H PRN 10/04/17 06/29/18 aspirin 325 mg tablet 325 mg PO DAILY 10/04/17 06/29/18 atenolol 50 mg tablet 50 mg PO DAILY 10/04/17 06/29/18 estradiol 1 mg tablet (Estrace) 1 mg PO DAILY 10/04/17 06/29/18 gabapentin 300 mg capsule 900 mg PO TID cap 10/04/17 06/29/18 lisinopril 20 mg tablet 40 mg PO DAILY 10/04/17 06/29/18 metformin 500 mg tablet 500 mg PO QPM tab 10/04/17 06/29/18 zolpidem 5 mg tablet 5 - 10 mg PO BEDTIME PRN 10/04/17 06/29/18 albuterol sulfate 90 mcg/actuation 2 puff INHALATION Q4H PRN 10/24/17 06/29/18 aerosol inhaler lisinopril 20 mg tablet 20 mg PO QPM 10/24/17 06/29/18 Previous Rx's Medication Instructions Recorded ciprofloxacin HCl 500 mg tablet 500 mg PO BID #20 tab 09/09/18 metronidazole 500 mg tablet 500 mg PO TID #30 tab 09/09/18 (Flagyl) amoxicillin 875 mg-potassium 1 tab PO BID #14 tab 03/24/20 clavulanate 125 mg tablet (Augmentin) sulfamethoxazole 800 1 tab PO BID #14 tab 03/24/20 mg-trimethoprim 160 mg tablet Allergies Allergy/AdvReac Type Severity Reaction Status Date / Time cephalexin [From Keflex] Allergy Severe nausea and Verified 03/05/21 15:05 vomiting erythromycin base Allergy Intermediate skin rash, Verified 03/05/21 15:05 hives belladonna alkaloids Allergy unknown Verified 03/05/21 15:05 metoclopramide [From Reglan] Allergy unknown Verified 03/05/21 15:05 Sulfa (Sulfonamide Allergy patient Verified 03/05/21 15:05 Antibiotics) does not recall, possibly nausea/vomiting prochlorperazine AdvReac Severe psych Verified 03/05/21 15:05 [From Compazine] reaction amlodipine AdvReac Intermediate headache Verified 03/05/21 15:05 and flushing levofloxacin [From Levaquin] AdvReac Intermediate other Verified 03/05/21 15:05 hydrochlorothiazide AdvReac Mild muscle Verified 03/05/21 15:05 cramps nifedipine [From Procardia] AdvReac Unknown intolerance Verified 03/05/21 15:05 Review of Systems <Peter Carney PA-C - Last Filed: 03/05/21 19:43> Constitutional Constitutional: Denies chills, Reports excessive sweating, Denies fatigue, Denies fever(s), Denies frequent falls, Denies lethargy and Denies weakness Eyes Eyes: Reports blurry vision, Reports change in vision, Denies eye discharge, Denies irritation and Denies loss of vision ENT Ears, Nose, Mouth, and Throat: Denies change in voice, Denies dizziness, Denies neck pain, Denies sore throat and Denies throat swelling Cardiovascular Cardiovascular: Denies chest pain, Denies irregular heart rhythm, Denies lightheadedness, Denies palpitations, Denies dyspnea, Denies dyspnea on exertion and Denies orthopnea Respiratory Respiratory: Denies cough, Denies dyspnea, Denies dyspnea on exertion and Denies wheezing Gastrointestinal Gastrointestinal: Denies abdominal pain, Denies melena, Denies change in bowel habits, Denies coffee ground emesis, Denies diarrhea, Reports nausea, Reports vomiting and Denies hematemesis Genitourinary Genitourinary: Denies hematuria, Reports nocturia, Denies flank pain, Denies urinary incontinence and Denies urinary urgency Musculoskeletal Musculoskeletal: Denies back pain, Denies muscle weakness, Denies neck pain, Denies numbness and Denies tingling Neurologic Neurologic: Denies behavioral changes, Denies confusion, Denies dizziness, Denies frequent falls, Denies loss of vision, Denies numbness, Denies tingling a nd Denies weakness Psychiatric Psychiatric: Denies behavioral changes and Denies confusion Endocrine Endocrine: Reports excessive sweating, Denies fatigue and Denies palpitations Allergic/Immunologic Allergic/Immunologic: Denies urticaria, Denies throat swelling and Denies wheezing Patient History <Peter Carney PA-C - Last Filed: 03/05/21 19:43> Medical History (Updated 03/05/21 @ 17:16 by Peter Carney PA-C) Chronic pain syndrome Hyperlipidemia associated with type 2 diabetes mellitus Hypertension associated with diabetes Musculoskeletal disorder Non-insulin dependent type 2 diabetes mellitus Surgical History H/O hysterectomy with oophorectomy Social History Smoking Status: Current every day smoker Smoking Status: Current every day smoker tobacco type: vaping alcohol intake frequency: 0-2 drinks per day Substance Use Type: marijuana Exam <Peter Carney PA-C - Last Filed: 03/05/21 19:43> Narrative Exam Narrative: GENERAL: 70 year old patient appears stated age. Well-developed patient, in mild distress. HEAD: Atraumatic. Normocephalic. EYES: Pupils equal round and reactive. Extraocular motions intact. No scleral icterus. No injection or drainage. ENT: Nose without bleeding, purulent drainage. Throat without erythema, tonsillar hypertrophy or exudate. Airway patent. NECK: Trachea midline. Non tender CARDIOVASCULAR: Regular rate and rhythm without murmurs, gallops, or rubs. RESPIRATORY: Clear to auscultation. Breath sounds equal bilaterally. No wheezes, rales, or rhonchi. GASTROINTESTINAL: Abdomen soft, non-tender, nondistended. EXTREMITIES: No edema or joint tenderness. BACK: Nontender without deformity or crepitance. No flank tenderness. NEURO: AOx3. SKIN: No rash or erythema of visible areas. Patient swelling at rest. Initial Vital Signs Initial Vital Signs: Vital Signs Temperature 99.4 F 03/05/21 14:58 Pulse Rate 88 03/05/21 14:58 Respiratory Rate 20 03/05/21 14:58 Blood Pressure 217/108 H 03/05/21 14:58 Pulse Oximetry 96 03/05/21 14:58 <Angela Andersen MD - Last Filed: 03/15/21 18:49> Initial Vital Signs Initial Vital Signs: Vital Signs Temperature 99.4 F 03/05/21 14:58 Pulse Rate 88 03/05/21 14:58 Respiratory Rate 20 03/05/21 14:58 Blood Pressure 217/108 H 03/05/21 14:58 Pulse Oximetry 96 03/05/21 14:58 Course <Peter Carney PA-C - Last Filed: 03/05/21 19:43> Course Course Narrative: Patient is a 70-year-old with history of type 2 diabetes presenting to the emergency department today for evaluation of hyperglycemia. EKG, troponin, A1c, CBC, CMP, VBG, ketones obtained. Orders Ordered: Discontinued Medications Sodium Chloride (Normal Saline 0.9%) 1,000 mls @ 1,000 mls/hr IV BOLUS ONE Stop: 03/05/21 16:55 Last Infusion: 03/05/21 17:04 Dose: 0 mls/hr Documented by: Admin: 03/05/21 16:10 Dose: 1,000 mls/hr Documented by: ANTHONY Vital Signs Vital signs: Vital Signs - 8 hr 03/05/21 14:58 03/05/21 17:07 Temperature 99.4 F Pulse Rate 88 70 Respiratory Rate 20 16 Blood Pressure 217/108 H 192/107 H Pulse Oximetry 96 95 <Angela Andersen MD - Last Filed: 03/15/21 18:49> Orders Ordered: Discontinued Medications Sodium Chloride (Normal Saline 0.9%) 1,000 mls @ 1,000 mls/hr IV BOLUS ONE Stop: 03/05/21 16:55 Last Infusion: 03/05/21 17:04 Dose: 0 mls/hr Documented by: Admin: 03/05/21 16:10 Dose: 1,000 mls/hr Documented by: ANTHONY Vital Signs Vital signs: Vital Signs - 8 hr 03/05/21 14:58 03/05/21 17:07 Temperature 99.4 F Pulse Rate 88 70 Respiratory Rate 20 16 Blood Pressure 217/108 H 192/107 H Pulse Oximetry 96 95 Medical Decision Making <Peter Carney PA-C - Last Filed: 03/05/21 19:43> Lab Data Result diagrams: 03/05/21 15:30 03/05/21 16:18 Labs: Lab Results 03/05/21 03/05/21 03/05/21 Range/Units 15:30 15:30 15:30 WBC 5.7 (4.5-11.0) X10^3/uL RBC 4.63 (4.0-5.2) X10^6/uL Hgb 14.2 (12.0-16.0) g/dL Hct 42.1 (36-46) % MCV 90.9 (80-100) fL MCH 30.7 (26-34) PG MCHC 33.8 (30-36) % RDW 12.6 (11.6-14.8) % Plt Count 150 (150-400) X10^3/uL Neut % (Auto) 60.2 (50-75) % Lymph % (Auto) 27.0 (25-40) % [place] % (Auto) 8.5 (3-14) % Eos % (Auto) 3.4 (2-4) % Baso % (Auto) 0.9 (0-2) % Neut # (Auto) 3400 (4940-8288) /uL Lymph # (Auto) 1500 (5039-1394) /uL [place] # (Auto) 500 (0-900) /uL Eos # (Auto) 200 (0-450) /uL Baso # (Auto) 0 (0-100) /uL VBG pH (7.33-7.43) VBG pCO2 (45-50) mmHg VBG pO2 (35-45) mmHg VBG HCO3 (23-28) mmol/L VBG Total CO2 (24-29) mmol/L VBG O2 Saturation (70-75) % VBG Base Excess (0-4) mmol/L Sodium (137-145) mmol/L Potassium (3.4-5.1) mmol/L Chloride (98-107) mmol/L Carbon Dioxide (22-32) mmol/L BUN (7-17) mg/dL Creatinine (0.52-1.04) mg/dL Estimated GFR (>60) mL/min BUN/Creatinine Ratio (6-22) Glucose (80-110) mg/dL Hemoglobin A1c 7.8 H (4.0-6.0) % Serum Osmolality Cancelled Calcium (8.4-10.2) mg/dL Total Bilirubin (0.2-1.3) mg/dL AST (14-36) IU/L ALT (<35) IU/L Alkaline Phosphatase (38-126) U/L Total Creatine Kinase (30-135) U/L CK-MB (CK-2) CK-MB (CK-2) Rel Index Troponin I (0.01-0.034) ng/mL Total Protein (6.3-8.2) g/dL Albumin (3.5-5.0) g/dL Globulin (1.7-4.1) g/dL Albumin/Globulin Ratio (1.0-2.8) Lipase (23-300) U/L Ketones (<0.27) mmol/L 03/05/21 03/05/21 03/05/21 Range/Units 15:53 16:18 16:18 WBC (4.5-11.0) X10^3/uL RBC (4.0-5.2) X10^6/uL Hgb (12.0-16.0) g/dL Hct (36-46) % MCV (80-100) fL MCH (26-34) PG MCHC (30-36) % RDW (11.6-14.8) % Plt Count (150-400) X10^3/uL Neut % (Auto) (50-75) % Lymph % (Auto) (25-40) % [place] % (Auto) (3-14) % Eos % (Auto) (2-4) % Baso % (Auto) (0-2) % Neut # (Auto) (8305-3585) /uL Lymph # (Auto) (6978-3113) /uL [place] # (Auto) (0-900) /uL Eos # (Auto) (0-450) /uL Baso # (Auto) (0-100) /uL VBG pH 7.36 (7.33-7.43) VBG pCO2 51.3 H (45-50) mmHg VBG pO2 40 (35-45) mmHg VBG HCO3 29 H (23-28) mmol/L VBG Total CO2 31 H (24-29) mmol/L VBG O2 Saturation 71 (70-75) % VBG Base Excess 4.0 (0-4) mmol/L Sodium 139 (137-145) mmol/L Potassium 5.1 (3.4-5.1) mmol/L Chloride 103 (98-107) mmol/L Carbon Dioxide 30 (22-32) mmol/L BUN 14 (7-17) mg/dL Creatinine 0.93 (0.52-1.04) mg/dL Estimated GFR 60.0 (>60) mL/min BUN/Creatinine Ratio 15.1 (6-22) Glucose 357 H (80-110) mg/dL Hemoglobin A1c (4.0-6.0) % Serum Osmolality Calcium 9.1 (8.4-10.2) mg/dL Total Bilirubin 0.4 (0.2-1.3) mg/dL AST 30 (14-36) IU/L ALT 26 (<35) IU/L Alkaline Phosphatase 77 (38-126) U/L Total Creatine Kinase 49 (30-135) U/L CK-MB (CK-2) TNP CK-MB (CK-2) Rel Index TNP Troponin I < 0.012 (0.01-0.034) ng/mL Total Protein 7.2 (6.3-8.2) g/dL Albumin 3.8 (3.5-5.0) g/dL Globulin 3.4 (1.7-4.1) g/dL Albumin/Globulin Ratio 1.1 (1.0-2.8) Lipase 193 (23-300) U/L Ketones 0.04 (<0.27) mmol/L Point of Care Testing Glucose POC 415 Point of care testing: Point of Care Testing Glucose POC 415 ECG Data Interpretation: Ventricular rate of 69 beats per minute, AL interval 154 ms, no ST wave changes, normal sinus rhythm. MDM Narrative Medical decision making narrative: Patient is a 70-year-old with history of type 2 diabetes presenting to the emergency department today for evaluation of hyperglycemia. To consider DKA versus HHS versus hypertensive emergency versus hyperglycemia. Overall physical examination, history, lab results are reassuring. Patient states that she has started to feel better following administration 1000 mL fluid bolus and notes that she is not experiencing nausea, confusion, or any additional focal neurological symptoms. Discussed with the patient the importance following up with primary care for stricture blood pressure and blood sugar management. Discussed strict return precautions with patient prior to discharge. <Angela Andersen MD - Last Filed: 03/15/21 18:49> Lab Data Labs: Lab Results 03/05/21 03/05/21 03/05/21 Range/Units 15:30 15:30 15:30 WBC 5.7 (4.5-11.0) X10^3/uL RBC 4.63 (4.0-5.2) X10^6/uL Hgb 14.2 (12.0-16.0) g/dL Hct 42.1 (36-46) % MCV 90.9 (80-100) fL MCH 30.7 (26-34) PG MCHC 33.8 (30-36) % RDW 12.6 (11.6-14.8) % Plt Count 150 (150-400) X10^3/uL Neut % (Auto) 60.2 (50-75) % Lymph % (Auto) 27.0 (25-40) % [place] % (Auto) 8.5 (3-14) % Eos % (Auto) 3.4 (2-4) % Baso % (Auto) 0.9 (0-2) % Neut # (Auto) 3400 (8912-8064) /uL Lymph # (Auto) 1500 (0147-9045) /uL [place] # (Auto) 500 (0-900) /uL Eos # (Auto) 200 (0-450) /uL Baso # (Auto) 0 (0-100) /uL VBG pH (7.33-7.43) VBG pCO2 (45-50) mmHg VBG pO2 (35-45) mmHg VBG HCO3 (23-28) mmol/L VBG Total CO2 (24-29) mmol/L VBG O2 Saturation (70-75) % VBG Base Excess (0-4) mmol/L Sodium (137-145) mmol/L Potassium (3.4-5.1) mmol/L Chloride (98-107) mmol/L Carbon Dioxide (22-32) mmol/L BUN (7-17) mg/dL Creatinine (0.52-1.04) mg/dL Estimated GFR (>60) mL/min BUN/Creatinine Ratio (6-22) Glucose (80-110) mg/dL Hemoglobin A1c 7.8 H (4.0-6.0) % Serum Osmolality Cancelled Calcium (8.4-10.2) mg/dL Total Bilirubin (0.2-1.3) mg/dL AST (14-36) IU/L ALT (<35) IU/L Alkaline Phosphatase (38-126) U/L Total Creatine Kinase (30-135) U/L CK-MB (CK-2) CK-MB (CK-2) Rel Index Troponin I (0.01-0.034) ng/mL Total Protein (6.3-8.2) g/dL Albumin (3.5-5.0) g/dL Globulin (1.7-4.1) g/dL Albumin/Globulin Ratio (1.0-2.8) Lipase (23-300) U/L Ketones (<0.27) mmol/L 03/05/21 03/05/21 03/05/21 Range/Units 15:53 16:18 16:18 WBC (4.5-11.0) X10^3/uL RBC (4.0-5.2) X10^6/uL Hgb (12.0-16.0) g/dL Hct (36-46) % MCV (80-100) fL MCH (26-34) PG MCHC (30-36) % RDW (11.6-14.8) % Plt Count (150-400) X10^3/uL Neut % (Auto) (50-75) % Lymph % (Auto) (25-40) % [place] % (Auto) (3-14) % Eos % (Auto) (2-4) % Baso % (Auto) (0-2) % Neut # (Auto) (0162-3684) /uL Lymph # (Auto) (9118-5192) /uL [place] # (Auto) (0-900) /uL Eos # (Auto) (0-450) /uL Baso # (Auto) (0-100) /uL VBG pH 7.36 (7.33-7.43) VBG pCO2 51.3 H (45-50) mmHg VBG pO2 40 (35-45) mmHg VBG HCO3 29 H (23-28) mmol/L VBG Total CO2 31 H (24-29) mmol/L VBG O2 Saturation 71 (70-75) % VBG Base Excess 4.0 (0-4) mmol/L Sodium 139 (137-145) mmol/L Potassium 5.1 (3.4-5.1) mmol/L Chloride 103 (98-107) mmol/L Carbon Dioxide 30 (22-32) mmol/L BUN 14 (7-17) mg/dL Creatinine 0.93 (0.52-1.04) mg/dL Estimated GFR 60.0 (>60) mL/min BUN/Creatinine Ratio 15.1 (6-22) Glucose 357 H (80-110) mg/dL Hemoglobin A1c (4.0-6.0) % Serum Osmolality Calcium 9.1 (8.4-10.2) mg/dL Total Bilirubin 0.4 (0.2-1.3) mg/dL AST 30 (14-36) IU/L ALT 26 (<35) IU/L Alkaline Phosphatase 77 (38-126) U/L Total Creatine Kinase 49 (30-135) U/L CK-MB (CK-2) TNP CK-MB (CK-2) Rel Index TNP Troponin I < 0.012 (0.01-0.034) ng/mL Total Protein 7.2 (6.3-8.2) g/dL Albumin 3.8 (3.5-5.0) g/dL Globulin 3.4 (1.7-4.1) g/dL Albumin/Globulin Ratio 1.1 (1.0-2.8) Lipase 193 (23-300) U/L Ketones 0.04 (<0.27) mmol/L Point of Care Testing Glucose POC 415 Point of care testing: Point of Care Testing Glucose POC 415 Discharge Plan Departure Patient Disposition: Home Clinical Impression: Hyperglycemia, Hypertension, Diabetes mellitus Instructions: DI for High Blood Pressure, DI for Diabetes Type 2 Activity Restrictions/Additional Instructions: *You have been diagnosed with hypertension, type 2 diabetes, hyperglycemia *What to do: *Please continue to take your regular medications as directed. [ ] New medication prescriptions sent to your pharmacy: [ ] [ ] New medication written as a paper prescription [X] No new medications given *Please follow up with your primary care provider within the next 24-48 hours, call for an appointment. Let them know you were seen in the Emergency Department and that we ask that you be seen in follow up. We will electronically transmit a record of today's note if your PCP is in our system. Please discuss options for stricture blood pressure and blood sugar management. *Please continue taking blood pressure medication as prescribed in the meantime. *If you do not have a primary care provider please contact [facility] Resource line at [phone]. They will ask some questions about your medical history and help get you set up with a doctor in the community. *Return to Emergency Department if you should have any new, worsening or concerning symptoms, such as fever greater than 101 F, shaking chills, worsening abdominal pain, persistent vomiting or other bothersome symptoms. Prescriptions: No Action metformin 500 mg tablet 500 mg PO QPM 0RF Label Comments: with dinner albuterol sulfate 2.5 mg /3 mL (0.083 %) solution for nebulization 1.25 mg INHALATION Q4H PRN (Reason: Shortness Of Breath) 0RF aspirin 325 mg tablet 325 mg PO DAILY 0RF lisinopril 20 mg tablet 40 mg PO DAILY 0RF Label Comments: take 2 tablets in morning and 1 tablet in the evening. estradiol [Estrace] 1 mg tablet 1 mg PO DAILY 0RF gabapentin 300 mg capsule 900 mg PO TID 0RF zolpidem 5 mg tablet 5 - 10 mg PO BEDTIME PRN (Reason: Sleep) 0RF atenolol 50 mg tablet 50 mg PO DAILY 0RF lisinopril 20 mg Tablet 20 mg PO QPM 0RF albuterol sulfate 90 mcg/actuation Hfa Aerosol Inhaler 2 puff INHALATION Q4H PRN (Reason: Wheezing) 0RF metronidazole [Flagyl] 500 mg tablet 500 mg PO TID Qty: 30 0RF ciprofloxacin HCl 500 mg tablet 500 mg PO BID Qty: 20 0RF sulfamethoxazole-trimethoprim 800-160 mg tablet 1 tab PO BID Qty: 14 0RF amoxicillin-pot clavulanate [Augmentin] 875-125 mg tablet 1 tab PO BID Qty: 14 0RF Referrals: Talha Durham MD [Primary Care Provider] - <Angela Andersen MD - Last Filed: 03/15/21 18:49> Cosign ED Attending Cosignature Attestation: I was immediately available in the department for consultation throughout this patient's visit. I agree with documentation as above. Angela Andersen MD
[2021-03-05 16:05] LABS: Add Manual Diff / Slide Review NO; Basophils Absolute Auto 0 /uL (0-100); Basophils Percent Auto 0.9 % (0-2); Eosinophils Absolute Auto 200 /uL (0-450); Eosinophils Percent Auto 3.4 % (2-4); Hematocrit 42.1 % (36-46); Hemoglobin 14.2 g/dL (12.0-16.0); Lymphocytes Absolute Auto 1500 /uL (1100-4500); Mean Corpuscular HGB Conc 33.8 % (30-36); Mean Corpuscular Hemoglobin 30.7 PG (26-34); Mean Corpuscular Volume 90.9 fL (80-100); Monocytes Absolute Auto 500 /uL (0-900); Monocytes Percent Auto 8.5 % (3-14); Neutrophils Absolute Auto 3400 /uL (1500-7000); Neutrophils Percent Auto 60.2 % (50-75); Platelet Count 150 X10^3/uL (150-400); Red Blood Cell Count 4.63 X10^6/uL (4.0-5.2); Red Cell Distribution Width 12.6 % (11.6-14.8); White Blood Cell Count 5.7 X10^3/uL (4.5-11.0)
[2021-03-05] MEDS: SODIUM CHLORIDE 0.9% 1,000 ML 1000 ML IV (16:10)
[2021-03-05 16:31] LABS: Hemoglobin A1C% w Est Avg Glu 7.8 % (4.0-6.0)
[2021-03-05 16:35] LABS: Creatine Kinase 49 U/L (30-135)
[2021-03-05 16:37] LABS: Alanine Aminotransferase 26 IU/L (<35); Albumin 3.8 g/dL (3.5-5.0); Albumin Globulin Ratio 1.1 (1.0-2.8); Alkaline Phosphatase 77 U/L (38-126); Aspartate Aminotransferase 30 IU/L (14-36); BUN Creatinine Ratio 15.1 (6-22); Bilirubin Total 0.4 mg/dL (0.2-1.3); Blood Urea Nitrogen 14 mg/dL (7-17); Calcium 9.1 mg/dL (8.4-10.2); Carbon Dioxide 30 mmol/L (22-32); Chloride 103 mmol/L (98-107); Globulin 3.4 g/dL (1.7-4.1); Glucose 357 mg/dL (80-110); HEMOLYSIS 22 (0-50); Lipase 193 U/L (23-300); Potassium 5.1 mmol/L (3.4-5.1); Sodium 139 mmol/L (137-145); Total Protein 7.2 g/dL (6.3-8.2)
[2021-03-05 16:41] LABS: Ketones (Beta-Hydroxybutyrate) 0.04 mmol/L (<0.27)
[2021-03-05 16:43] LABS: HCO3 VBG 29 mmol/L (23-28); PCO2 VBG 51.3 mmHg (45-50); PO2 VBG 40 mmHg (35-45); Total CO2 VBG 31 mmol/L (24-29); pH VBG 7.36 (7.33-7.43)
[2021-03-05 16:44] LABS: Oxygen Saturation VBG 71 % (70-75)
[2021-03-05 16:48] LABS: Troponin I < 0.012 ng/mL (0.01-0.034)
[2021-03-05 17:07] VITALS: BP 192/107; PULSE 70; RESP 16; O2SAT 95
== END 2021-03-05 17:32 | disposition home or self-care (01) ==
PROVIDERS: Emergency Provider Physician Assistant; PCP Internal Medicine
DX: E11.65 Type 2 diabetes mellitus with hyperglycemia (principal); I10 Essential (primary) hypertension; R11.10 Vomiting, unspecified; F17.290 Nicotine dependence, other tobacco product, uncomplicated; Z79.84 Long term (current) use of oral hypoglycemic drugs
CPT/HCPCS: 36415; 80053; 82009; 82550; 82805; 82962; 83036; 83690; 84484; 85025; 93005; 96360; 99284

== ENCOUNTER 2021-06-10 20:37 | Emergency (ER) | payer MEDICARE, OTHER, SELFPAY ==
[2021-06-10 20:49] VITALS: BP 196/98; PULSE 88; RESP 20; TEMP 37.2; O2SAT 97; BMI 32.5
[2021-06-10 21:18] LABS: Alanine Aminotransferase 20 IU/L (<35); Albumin 4.3 g/dL (3.5-5.0); Alkaline Phosphatase 97 U/L (38-126); Aspartate Aminotransferase 26 IU/L (14-36); BUN Creatinine Ratio 14.3 (6-22); Bilirubin Total 1.4 mg/dL (0.2-1.3); Blood Urea Nitrogen 12 mg/dL (7-17); Carbon Dioxide 27 mmol/L (22-32); Chloride 102 mmol/L (98-107); Estimated Glomerular Filt Rate > 60.0 mL/min (>60); Globulin 4.4 g/dL (1.7-4.1); Glucose 195 mg/dL (80-110); HEMOLYSIS < 15 (0-50); Lipase 70 U/L (23-300); Potassium 4.3 mmol/L (3.4-5.1); Sodium 136 mmol/L (137-145); Total Protein 8.7 g/dL (6.3-8.2)
[2021-06-10 21:21] LABS: Add Manual Diff / Slide Review NO; Basophils Absolute Auto 100 /uL (0-100); Eosinophils Absolute Auto 100 /uL (0-450); Eosinophils Percent Auto 0.9 % (2-4); Hematocrit 42.8 % (36-46); Hemoglobin 14.6 g/dL (12.0-16.0); Lymphocytes Absolute Auto 1800 /uL (1100-4500); Lymphocytes Percent Auto 13.4 % (25-40); Mean Corpuscular HGB Conc 34.1 % (30-36); Mean Corpuscular Hemoglobin 30.3 PG (26-34); Mean Corpuscular Volume 88.7 fL (80-100); Monocytes Absolute Auto 900 /uL (0-900); Monocytes Percent Auto 6.6 % (3-14); Neutrophils Absolute Auto 10700 /uL (1500-7000); Neutrophils Percent Auto 78.1 % (50-75); Platelet Count 183 X10^3/uL (150-400); Red Blood Cell Count 4.82 X10^6/uL (4.0-5.2); Red Cell Distribution Width 12.5 % (11.6-14.8); White Blood Cell Count 13.7 X10^3/uL (4.5-11.0)
--- NOTE | 2021-06-10 21:40 | DI.CT.S_ITS ---
PROCEDURE: CT ABDOMEN PELVIS W CON INDICATIONS: left lower quadrant pain TECHNIQUE: After the administration of intravenous contrast, axial sections acquired from the lung bases to the pubic symphysis. Coronal and sagittal reformats were performed. For radiation dose reduction, the following was used: automated exposure control, adjustment of mA and/or kV according to patient size. COMPARISON: [facility], CT, CT KIDNEY URETER BLADDER ([facility]), 03/24/2020, 8:30. FINDINGS: Image quality: Excellent. Lung bases: Unremarkable. Heart: No significant findings. ABDOMEN: Liver: Unremarkable. Gallbladder: Contracted with a calculus in its lumen Biliary ducts: Unremarkable. Pancreas: Unremarkable. Spleen: Unremarkable. Adrenal Glands: Unremarkable. Kidneys and Ureters: Unremarkable. Stomach and Bowel: Stomach and small bowel within normal limits. Moderate thickening diffusely throughout the colon. Diverticulosis of the descending and sigmoid colon. Mild fat stranding surrounds the sigmoid colon. No pericolonic abscess. Peritoneum: No abnormal intraperitoneal fluid. No free air. Ventral Wall: No hernias. Abdominal Nodes: No retroperitoneal or mesenteric adenopathy by size criteria. Vessels: Aorta and inferior vena cava are normal in size. PELVIS: Pelvic Organs: Unremarkable. Bladder: Unremarkable. Pelvic Nodes: No enlarged lymph nodes. Miscellaneous: No hernias are seen. Bones: Unremarkable. IMPRESSION: 1. Diverticulitis of the sigmoid colon. 2. Thickening of the remainder of the colon. Differential considerations include ischemia, infection, and inflammation. 3. Appendix not seen. No evidence of appendicitis. 4. Follow-up colonoscopy is recommended to exclude underlying neoplasm. Dictated by: Eleazar Jameson M.D. on 06/10/2021 at 21:58 Approved by: Eleazar Jameson M.D. on 06/10/2021 at 22:00
--- NOTE | 2021-06-10 21:41 | ED.ABDPAIN ---
HPI - Abdominal Pain General Chief Complaint: Abdominal Pain Stated Complaint: diverticulitis pain Time Seen by Provider: 06/10/21 21:23 Source: patient Mode of arrival: Ambulatory History of Present Illness HPI narrative: Patient here for left lower quadrant pain. No nausea or vomiting. No fever. Patient states feels like diverticulitis again. This would be her 12th episode. Seen here in 2019 for the same. Improved with Flagyl and Cipro. Patient states she would like pain medication at home but not here. She is driving. She does not want to be admitted if it is diverticulitis. Ongoing 3 days. Related Data Home Medications Medication Instructions Recorded Confirmed albuterol sulfate 1.25 mg INHALATION Q4H PRN 10/04/17 06/29/18 aspirin 325 mg tablet 325 mg PO DAILY 10/04/17 06/29/18 atenolol 50 mg tablet 50 mg PO DAILY 10/04/17 06/29/18 estradiol 1 mg tablet (Estrace) 1 mg PO DAILY 10/04/17 06/29/18 gabapentin 300 mg capsule 900 mg PO TID cap 10/04/17 06/29/18 lisinopril 20 mg tablet 40 mg PO DAILY 10/04/17 06/29/18 metformin 500 mg tablet 500 mg PO QPM tab 10/04/17 06/29/18 zolpidem 5 mg tablet 5 - 10 mg PO BEDTIME PRN 10/04/17 06/29/18 albuterol sulfate 90 mcg/actuation 2 puff INHALATION Q4H PRN 10/24/17 06/29/18 aerosol inhaler lisinopril 20 mg tablet 20 mg PO QPM 10/24/17 06/29/18 Previous Rx's Medication Instructions Recorded ciprofloxacin HCl 500 mg tablet 500 mg PO BID #20 tab 09/09/18 metronidazole 500 mg tablet 500 mg PO TID #30 tab 09/09/18 (Flagyl) amoxicillin 875 mg-potassium 1 tab PO BID #14 tab 03/24/20 clavulanate 125 mg tablet (Augmentin) sulfamethoxazole 800 1 tab PO BID #14 tab 03/24/20 mg-trimethoprim 160 mg tablet ciprofloxacin HCl 500 mg tablet 500 mg PO BID #20 tab 06/10/21 (Cipro) hydrocodone 5 mg-acetaminophen 325 1 tab PO Q6H PRN #20 tab 03/02/22 mg tablet metronidazole 500 mg tablet 500 mg PO TID #30 tab 06/10/21 ondansetron 4 mg disintegrating 4 mg PO Q8H PRN #10 tab 06/10/21 tablet Allergies Allergy/AdvReac Type Severity Reaction Status Date / Time cephalexin [From Keflex] Allergy Severe nausea and Verified 03/05/21 15:05 vomiting erythromycin base Allergy Intermediate skin rash, Verified 03/05/21 15:05 hives belladonna alkaloids Allergy unknown Verified 03/05/21 15:05 metoclopramide [From Reglan] Allergy unknown Verified 03/05/21 15:05 Sulfa (Sulfonamide Allergy patient Verified 03/05/21 15:05 Antibiotics) does not recall, possibly nausea/vomiting prochlorperazine AdvReac Severe psych Verified 03/05/21 15:05 [From Compazine] reaction amlodipine AdvReac Intermediate headache Verified 03/05/21 15:05 and flushing levofloxacin [From Levaquin] AdvReac Intermediate other Verified 03/05/21 15:05 hydrochlorothiazide AdvReac Mild muscle Verified 03/05/21 15:05 cramps nifedipine [From Procardia] AdvReac Unknown intolerance Verified 03/05/21 15:05 Review of Systems Review of Systems Narrative: GENERAL: Denies chills, fatigue, malaise, fever, sweats. HEENT: Denies sinus pain, ear pain, sore throat RESPIRATORY: Denies dyspnea, cough CARDIOVASCULAR: Denies chest pain, palpitations GASTROINTESTINAL: Denies nausea, vomiting, positive for abdominal pain : Denies dysuria, frequency, hematuria MUSCULOSKELETAL: denies muscle or bony pain SKIN: Denies rash, skin lesions NEUROLOGIC: Denies weakness, numbness ROS Unobtainable: All systems reviewed & are unremarkable except as noted in HPI and below Patient History Medical History (Updated 06/10/21 @ 22:48 by Miki Larson MD) Chronic pain syndrome Hyperlipidemia associated with type 2 diabetes mellitus Hypertension associated with diabetes Musculoskeletal disorder Non-insulin dependent type 2 diabetes mellitus Surgical History H/O hysterectomy with oophorectomy Social History Smoking Status: Current every day smoker Smoking Status: Current every day smoker tobacco type: vaping alcohol intake frequency: 0-2 drinks per day Substance Use Type: marijuana Exam Narrative Exam Narrative: GENERAL: in no distress, not toxic not dyspneic HEAD: Normocephalic. EYES: Pupils equal round No scleral icterus. ENT: Mucous membranes moist. NECK: Trachea midline. CARDIOVASCULAR: Regular rate and rhythm without murmurs RESPIRATORY: Clear to auscultation. Breath sounds equal bilaterally. No wheezes, rales, or rhonchi. GASTROINTESTINAL: Abdomen soft, reproducible left lower quadrant tenderness. No peritoneal signs. Bowel sounds present. EXTREMITIES: No gross deformities. NEURO: AOx4. SKIN: Warm and dry PSYCH: Not anxious, is cooperative Initial Vital Signs Initial Vital Signs: Vital Signs Temperature 99.0 F 06/10/21 20:49 Pulse Rate 88 06/10/21 20:49 Respiratory Rate 20 06/10/21 20:49 Blood Pressure 196/98 H 06/10/21 20:49 Pulse Oximetry 97 06/10/21 20:49 Course Course Course Narrative: No new issues during course of stay Orders Ordered: ED Orders 06/10/21 20:55 EKG-12 Lead Stat 06/10/21 21:00 Complete Blood Count AUTO DIFF Stat Comprehensive Metabolic Panel Stat Lipase Stat 06/10/21 21:40 CT abdomen pelvis w con Stat Discontinued Medications Hydrocodone Bitart/Acetaminophen (Hydrocodone/Acet 5/325 Prepack) 1 bottle MISC SEEINSTR ONE Stop: 06/10/21 22:52 Last Admin: 06/10/21 22:56 Dose: 1 bottle Documented by: MASHA Ciprofloxacin (Ciprofloxacin 250 Mg Tablet) 500 mg PO NOW ONE Stop: 06/10/21 21:41 Last Admin: 06/10/21 22:04 Dose: 500 mg Documented by: IRON Sodium Chloride (Normal Saline 0.9%) 1,000 mls @ 1,000 mls/hr IV BOLUS ONE Stop: 06/10/21 22:39 Last Infusion: 06/10/21 22:57 Dose: 0 mls/hr Documented by: Admin: 06/10/21 22:04 Dose: 1,000 mls/hr Documented by: IRON Metronidazole (Metronidazole 500 Mg Tablet) 500 mg PO NOW ONE Stop: 06/10/21 21:42 Last Admin: 06/10/21 22:04 Dose: 500 mg Documented by: IRON Vital Signs Vital signs: Vital Signs - 8 hr 06/10/21 20:49 06/10/21 23:04 Temperature 99.0 F Pulse Rate 88 73 Respiratory Rate 20 18 Blood Pressure 196/98 H 183/79 H Pulse Oximetry 97 97 MDM - Abdominal Pain Differential Diagnosis Differential diagnosis: Likely abdominal pain, acute appendicitis, diverticulitis and small bowel obstruction Lab Data Result diagrams: 06/10/21 21:00 06/10/21 21:00 Labs: Lab Results 06/10/21 06/10/21 Range/Units 21:00 21:00 WBC 13.7 H (4.5-11.0) X10^3/uL RBC 4.82 (4.0-5.2) X10^6/uL Hgb 14.6 (12.0-16.0) g/dL Hct 42.8 (36-46) % MCV 88.7 (80-100) fL MCH 30.3 (26-34) PG MCHC 34.1 (30-36) % RDW 12.5 (11.6-14.8) % Plt Count 183 (150-400) X10^3/uL Neut % (Auto) 78.1 H (50-75) % Lymph % (Auto) 13.4 L (25-40) % [place] % (Auto) 6.6 (3-14) % Eos % (Auto) 0.9 L (2-4) % Baso % (Auto) 1.0 (0-2) % Neut # (Auto) 10499 H (4354-2082) /uL Lymph # (Auto) 1800 (2028-6063) /uL [place] # (Auto) 900 (0-900) /uL Eos # (Auto) 100 (0-450) /uL Baso # (Auto) 100 (0-100) /uL Sodium 136 L (137-145) mmol/L Potassium 4.3 (3.4-5.1) mmol/L Chloride 102 (98-107) mmol/L Carbon Dioxide 27 (22-32) mmol/L BUN 12 (7-17) mg/dL Creatinine 0.84 (0.52-1.04) mg/dL Estimated GFR > 60.0 (>60) mL/min BUN/Creatinine Ratio 14.3 (6-22) Glucose 195 H (80-110) mg/dL Calcium 9.0 (8.4-10.2) mg/dL Total Bilirubin 1.4 H (0.2-1.3) mg/dL AST 26 (14-36) IU/L ALT 20 (<35) IU/L Alkaline Phosphatase 97 (38-126) U/L Total Protein 8.7 H (6.3-8.2) g/dL Albumin 4.3 (3.5-5.0) g/dL Globulin 4.4 H (1.7-4.1) g/dL Albumin/Globulin Ratio 1.0 (1.0-2.8) Lipase 70 (23-300) U/L Imaging Data CT scan - abdomen/pelvis: Radiologist's Impression: [address] [address] [address] Scan Report Signed Patient: Karina Flaherty MR#: [id number] : 1950 Acct:[id number] Age/Sex: 70 / F Date of Service: 06/10/21 Loc: ED Accession Number: [id number] ?? Procedure: CT abdomen pelvis w con Ordering Provider: Miki Larson MD PROCEDURE:? CT ABDOMEN PELVIS W CON ? INDICATIONS:? left lower quadrant pain ? TECHNIQUE:? After the administration of intravenous contrast, axial sections acquired from the lung bases to the pubic symphysis.? Coronal and sagittal reformats were performed.? For radiation dose reduction, the following was used:? automated exposure control, adjustment of mA and/or kV according to patient size.? ? COMPARISON:? [facility], CT, CT KIDNEY URETER BLADDER (KUB), 03/24/2020, 8:30. ? FINDINGS:? Image quality:? Excellent.? ? Lung bases:? Unremarkable. Heart:? No significant findings. ? ABDOMEN: Liver:? Unremarkable.? ? Gallbladder:? Contracted with a calculus in its lumen? ? Biliary ducts:? Unremarkable.? ? Pancreas:? Unremarkable.? ? Spleen:? Unremarkable.? ? Adrenal Glands:? Unremarkable.? ? Kidneys and Ureters:? Unremarkable.? ? ? Stomach and Bowel:? Stomach and small bowel within normal limits.? Moderate thickening diffusely throughout the colon.? Diverticulosis of the descending and sigmoid colon.? Mild fat stranding surrounds the sigmoid colon.? No pericolonic abscess. Peritoneum:? No abnormal intraperitoneal fluid.? No free air.? ? Ventral Wall: ? No hernias.? Abdominal Nodes:? No retroperitoneal or mesenteric adenopathy by size criteria.? Vessels:? Aorta and inferior vena cava are normal in size.? ? PELVIS: Pelvic Organs:? Unremarkable.? ? Bladder:? Unremarkable.? ? Pelvic Nodes: No enlarged lymph nodes.? Miscellaneous: No hernias are seen. ? ? ? Bones:? Unremarkable.? IMPRESSION:? 1. Diverticulitis of the sigmoid colon. 2. Thickening of the remainder of the colon.? Differential considerations include ischemia, infection, and inflammation. 3. Appendix not seen.? No evidence of appendicitis. 4. Follow-up colonoscopy is recommended to exclude underlying neoplasm. ? ? Dictated by: Eleazar Jameson M.D. on 06/10/2021 at 21:58 ? ? Approved by: Eleazar Jameson M.D. on 06/10/2021 at 22:00 ? MDM Narrative Medical decision making narrative: Appropriate for discharge home. Patient has had discharge from department before or with the outpatient antibiotics and pain control. Return precautions reviewed with patient. Otherwise imaging laboratory studies are reassuring. Return precautions reviewed with her. Discharge Plan Departure Patient Disposition: Home Clinical Impression: Diverticulitis Instructions: DI for Diverticulitis Activity Restrictions/Additional Instructions: See family doctor this week for recheck. Return if worse or for any questions or concerns. Prescriptions have been provided for antibiotics as well as pain medication as well as nausea medication. Prescriptions: New ciprofloxacin HCl [Cipro] 500 mg tablet 500 mg PO BID Qty: 20 0RF metronidazole 500 mg tablet 500 mg PO TID Qty: 30 0RF ondansetron 4 mg tablet,disintegrating 4 mg PO Q8H PRN (Reason: nausea and vomiting) Qty: 10 0RF hydrocodone-acetaminophen 5-325 mg tablet 1 tab PO Q6H PRN (Reason: pain) Qty: 20 0RF No Action metformin 500 mg tablet 500 mg PO QPM 0RF Label Comments: with dinner albuterol sulfate 2.5 mg /3 mL (0.083 %) solution for nebulization 1.25 mg INHALATION Q4H PRN (Reason: Shortness Of Breath) 0RF aspirin 325 mg tablet 325 mg PO DAILY 0RF lisinopril 20 mg tablet 40 mg PO DAILY 0RF Label Comments: take 2 tablets in morning and 1 tablet in the evening. estradiol [Estrace] 1 mg tablet 1 mg PO DAILY 0RF gabapentin 300 mg capsule 900 mg PO TID 0RF zolpidem 5 mg tablet 5 - 10 mg PO BEDTIME PRN (Reason: Sleep) 0RF atenolol 50 mg tablet 50 mg PO DAILY 0RF lisinopril 20 mg Tablet 20 mg PO QPM 0RF albuterol sulfate 90 mcg/actuation Hfa Aerosol Inhaler 2 puff INHALATION Q4H PRN (Reason: Wheezing) 0RF metronidazole [Flagyl] 500 mg tablet 500 mg PO TID Qty: 30 0RF ciprofloxacin HCl 500 mg tablet 500 mg PO BID Qty: 20 0RF sulfamethoxazole-trimethoprim 800-160 mg tablet 1 tab PO BID Qty: 14 0RF amoxicillin-pot clavulanate [Augmentin] 875-125 mg tablet 1 tab PO BID Qty: 14 0RF Referrals: Talha Durham MD [Primary Care Provider] -
[2021-06-10] MEDS: SODIUM CHLORIDE 0.9% 1,000 ML 1000 ML IV (22:04)
[2021-06-10] MEDS: metroNIDAZOLE 500 MG TABLET PO (22:04)
[2021-06-10] MEDS: CIPROFLOXACIN 250 MG TABLET 500 MG PO (22:04)
[2021-06-10] MEDS: HYDROCODONE/ACET 5/325 PREPACK 1 BOTTLE MISC (22:56)
[2021-06-10 23:04] VITALS: BP 183/79; PULSE 73; RESP 18; O2SAT 97
== END 2021-06-10 23:05 | disposition home or self-care (01) ==
PROVIDERS: Emergency Provider Emergency Medicine; PCP Internal Medicine
DX: K57.32 Diverticulitis of large intestine without perforation or abscess without bleeding (principal); F17.290 Nicotine dependence, other tobacco product, uncomplicated; Z88.1 Allergy status to other antibiotic agents; Z88.8 Allergy status to other drugs, medicaments and biological substances
CPT/HCPCS: 74177; 80053; 83690; 85025; 96360; 99284; Q9967

== ENCOUNTER 2022-03-06 18:35 | Emergency (ER) | payer MEDICARE, OTHER, SELFPAY ==
[2022-03-06] VITALS (16 sets, daily range): BP systolic 135–213; BP diastolic 63–89; PULSE 82–93; RESP 16; TEMP 37.2; O2SAT 92–98; BMI 31.6
[2022-03-06] MEDS: ONDANSETRON 4 MG/2 ML INJ IV (19:06)
--- NOTE | 2022-03-06 19:12 | DI.RAD.S_ITS ---
PROCEDURE: XR CHEST 1V INDICATIONS: sob TECHNIQUE: One view of the chest was acquired. COMPARISON: [facility], CR, XR CHEST 1V, 03/25/2019, 16:09. FINDINGS: Surgical changes and devices: None. Lungs and pleura: Possible mild opacity at the left lung base. No pleural effusions. Mediastinum: Mediastinal contours appear normal. Heart size is normal. Bones and chest wall: No suspicious bony lesions. Overlying soft tissues appear unremarkable. IMPRESSION: Possible mild opacity at the left lung base may represent atelectasis or early airspace disease. Consider future imaging surveillance to assess for resolution. Dictated by: Moody Dahl M.D. on 03/06/2022 at 20:15 Approved by: Moody Dahl M.D. on 03/06/2022 at 20:16
--- NOTE | 2022-03-06 19:12 | DI.US.S_ITS ---
PROCEDURE: US ABDOMEN LIMITED INDICATIONS: RIGHT UPPER QUADRANT PAIN TECHNIQUE: Real-time scanning was performed of the right upper quadrant, with image documentation. COMPARISON: [facility], CT, CT KIDNEY URETER BLADDER (KUB), 03/24/2020, 8:30. [facility], CT, CT ABDOMEN PELVIS W CON, 06/10/2021, 21:46. FINDINGS: Liver: Liver measures 16.4 cm. Increased in echogenicity. Decreased sonographic penetration poured portal vein demonstrates hepatopetal flow. Gallbladder: Within normal limits in size. Mobile gallstone measuring 1.9 cm. Gallbladder wall measures 3-3.5 mm and is minimally thickened. No pericholecystic fluid. Negative sonographic Bird's sign. Biliary ducts: Extrahepatic bile duct caliber measures 15 mm. Normal is 6-7 mm or less in diameter, or 10 mm or less post-cholecystectomy. Pancreas: Not well seen. Miscellaneous: No free abdominal fluid. IMPRESSION: Technically limited exam. 1. Increased hepatic echogenicity most consistent with hepatic steatosis. Other forms of hepatocellular disease could have similar appearance. 2. Gallbladder wall is minimally thickened. However, no pericholecystic fluid or sonographic Bird's sign to suggest acute cholecystitis. There is a mobile gallstone measuring 1.9 cm. -HIDA scan could be considered for further evaluation. 3. Extrahepatic bile ducts are dilated. However, this appears similar to the CT from June 2021. -MRCP could be considered for further evaluation of the bile ducts. Dictated by: Yovany Molina M.D. on 03/06/2022 at 20:37 Approved by: Yovany Molina M.D. on 03/06/2022 at 20:41
--- NOTE | 2022-03-06 19:16 | ED_ITS ---
HPI - Abdominal Pain General Chief Complaint: Abdominal Pain Stated Complaint: Vomiting,Faint, Upper Abd Pain Time Seen by Provider: 03/06/22 18:53 Mode of arrival: Family Vehicle History of Present Illness HPI narrative: Patient is a 71-year-old female history of hyperlipidemia type 2 diabetes, chronic pain syndrome presenting today with generalized weakness ongoing for about 2 days and starting with epigastric and right upper quadrant pain about 2 hours ago. She has been nauseous with vomiting throughout the day. She has a little bit shortness of breath and cough. She says sometimes the pain goes up into her chest as well. She states that other family members have been ill as well. Related Data Home Medications Medication Instructions Recorded Confirmed albuterol sulfate 2.5 mg/3 mL 1.25 mg inhalation Q4H PRN 10/04/17 06/29/18 (0.083 %) solution for nebulization Shortness Of Breath aspirin 325 mg tablet 325 mg PO DAILY 10/04/17 06/29/18 atenolol 50 mg tablet 50 mg PO DAILY 10/04/17 06/29/18 estradiol 1 mg tablet (Estrace) 1 mg PO DAILY 10/04/17 06/29/18 gabapentin 300 mg capsule 900 mg PO TID 10/04/17 06/29/18 lisinopril 20 mg tablet 40 mg PO DAILY 10/04/17 06/29/18 metformin 500 mg tablet 500 mg PO QPM 10/04/17 06/29/18 zolpidem 5 mg tablet 5 - 10 mg PO BEDTIME PRN Sleep 10/04/17 06/29/18 albuterol sulfate 90 mcg/actuation 2 puff inhalation Q4H PRN Wheezing 10/24/17 06/29/18 aerosol inhaler lisinopril 20 mg tablet 20 mg PO QPM 10/24/17 06/29/18 Previous Rx's Medication Instructions Recorded ciprofloxacin HCl 500 mg tablet 500 mg PO BID #20 tabs 09/09/18 metronidazole 500 mg tablet 500 mg PO TID #30 tabs 09/09/18 (Flagyl) amoxicillin 875 mg-potassium 1 tab PO BID #14 tabs 03/24/20 clavulanate 125 mg tablet (Augmentin) sulfamethoxazole 800 1 tab PO BID #14 tabs 03/24/20 mg-trimethoprim 160 mg tablet ciprofloxacin HCl 500 mg tablet 500 mg PO BID #20 tabs 06/10/21 (Cipro) hydrocodone 5 mg-acetaminophen 325 1 tab PO Q6H PRN pain #20 tabs 06/10/21 mg tablet metronidazole 500 mg tablet 500 mg PO TID #30 tabs 06/10/21 ondansetron 4 mg disintegrating 4 mg PO Q8H PRN nausea and 06/10/21 tablet vomiting #10 tabs hydrocodone 5 mg-acetaminophen 325 1 tab PO Q6H PRN pain #10 tabs 03/06/22 mg tablet ondansetron 4 mg disintegrating 4 mg PO Q8H PRN nausea and 03/06/22 tablet vomiting #10 tabs Allergies Allergy/AdvReac Type Severity Reaction Status Date / Time cephalexin [From Keflex] Allergy Severe nausea and Verified 03/05/21 15:05 vomiting erythromycin base Allergy Intermediate skin rash, Verified 03/05/21 15:05 hives belladonna alkaloids Allergy unknown Verified 03/05/21 15:05 metoclopramide [From Reglan] Allergy unknown Verified 03/05/21 15:05 Sulfa (Sulfonamide Allergy patient Verified 03/05/21 15:05 Antibiotics) does not recall, possibly nausea/vomiting prochlorperazine AdvReac Severe psych Verified 03/05/21 15:05 [From Compazine] reaction amlodipine AdvReac Intermediate headache Verified 03/05/21 15:05 and flushing levofloxacin [From Levaquin] AdvReac Intermediate other Verified 03/05/21 15:05 hydrochlorothiazide AdvReac Mild muscle Verified 03/05/21 15:05 cramps nifedipine [From Procardia] AdvReac Unknown intolerance Verified 03/05/21 15:05 Review of Systems Review of Systems Narrative: GENERAL: See HPI HEENT: Denies sinus pain, ear pain, sore throat, difficulty swallowing, neck pain RESPIRATORY: Denies dyspnea, cough, wheezing, hemoptysis, sputum. CARDIOVASCULAR: Denies chest pain, palpitations, orthopnea, edema GASTROINTESTINAL: See HPI : Denies dysuria, frequency, incontinence, hematuria, urinary retention, flank pain. MUSCULOSKELETAL: Denies weakness, joint pain, or bony pain SKIN: No rash, no erythema, no pruritus NEUROLOGIC: Denies weakness, dizziness, headache, numbness, change in speech, confusion PSYCHIATRIC: No concerning psychosocial issues. 12 point review of systems is negative except for those stated above and HPI Patient History Medical History (Updated 03/06/22 @ 22:09 by Laureen Zamora DO) Chronic pain syndrome Hyperlipidemia associated with type 2 diabetes mellitus Hypertension associated with diabetes Musculoskeletal disorder Non-insulin dependent type 2 diabetes mellitus Surgical History H/O hysterectomy with oophorectomy Social History Smoking Status: Current every day smoker Smoking Status: Current every day smoker tobacco type: vaping alcohol intake frequency: 0-2 drinks per day Substance Use Type: marijuana Exam Initial Vital Signs Initial Vital Signs: Vital Signs Temperature 99 F 03/06/22 18:42 Pulse Rate 93 H 03/06/22 18:42 Respiratory Rate 16 03/06/22 18:42 Blood Pressure 182/79 H 03/06/22 18:42 Pulse Oximetry 98 03/06/22 18:42 Oxygen Delivery Method 03/06/22 18:42 GENERAL: Alert 71-year-old female appears older than stated age appears to not feel well HEENT: Head atraumatic,EOMI, pupils reactive, face symmetric, moist mucous membranes CARDIOVASCULAR: Regular rate and rhythm without murmurs, rubs or gallops. RESPIRATORY: Breath sounds equal bilaterally, no wheezes rales or rhonchi. Speaks in full sentences ABDOMEN: Soft, epigastric tenderness right upper quadrant pain positive Bird sign no guarding no rebound no distention no lower abdominal pain : No CVA tenderness EXTREMITIES: Normal range of motion, no clubbing or edema. Neurovascularly intact NEUROLOGICAL: Alert and oriented x4 SKIN: Warm, dry, no laceration, no petechiae, no rashes or lesions. Course Orders Ordered: ED Orders 03/06/22 18:44 EKG-12 Lead Stat 03/06/22 18:49 Covid-19 + FLU A/B + RSV - PCR Stat 03/06/22 19:02 Complete Blood Count AUTO DIFF Stat Comprehensive Metabolic Panel Stat Lactate (Lactic Acid) Stat Lipase Stat Procalcitonin Stat Troponin & CK Cardiac Panel Stat 03/06/22 19:12 Chest [XR chest 1V] Stat US abdomen limited Stat 03/06/22 20:39 Blood Culture Stat Discontinued Medications Hydrocodone Bitart/Acetaminophen (Hydrocodone/Acet 5/325 Prepack) 1 bottle MISC SEEINSTR ONE Stop: 03/06/22 22:21 Last Admin: 03/06/22 22:30 Dose: 1 bottle Documented By: JAH Sodium Chloride (Normal Saline 0.9%) 1,000 mls @ 1,000 mls/hr IV BOLUS ONE Stop: 03/06/22 20:12 Last Infusion: 03/06/22 21:49 Dose: 0 mls/hr Documented By: Admin: 03/06/22 19:23 Dose: 1,000 mls/hr Documented By: JOLIE Ketorolac Tromethamine (Ketorolac 30 Mg/Ml Vial) 15 mg IV NOW ONE Stop: 03/06/22 19:13 Last Admin: 03/06/22 19:23 Dose: 15 mg Documented By: JOLIE Morphine Sulfate (Morphine 4 Mg/Ml Inj) 4 mg IV NOW ONE Stop: 03/06/22 21:02 Last Admin: 03/06/22 21:18 Dose: 4 mg Documented By: JAH Ondansetron HCl (Ondansetron 4 Mg Odt) 4 mg PO NOW ONE Stop: 03/06/22 18:44 Last Admin: 03/06/22 19:06 Dose: Not Given Documented By: JOLIE Ondansetron HCl (Ondansetron 4 Mg/2 Ml Inj) 4 mg IV NOW ONE Stop: 03/06/22 18:44 Last Admin: 03/06/22 19:06 Dose: 4 mg Documented By: JOLIE Ondansetron HCl (Ondansetron 4 Mg Odt Prepack) [facility] Stop: 03/06/22 22:21 Last Admin: 03/06/22 22:30 Dose: 1 bottle Documented By: JAH Pantoprazole Sodium (Pantoprazole 40 Mg Vial) 40 mg IV NOW ONE Stop: 03/06/22 19:14 Last Admin: 03/06/22 19:24 Dose: 40 mg Documented By: JOLIE Vital Signs Vital signs: Vital Signs - 8 hr 03/06/22 19:14 03/06/22 19:14 03/06/22 19:20 Pulse Rate 84 Blood Pressure 180/86 H 165/74 H Pulse Oximetry 92 Oxygen Delivery Method 03/06/22 19:20 03/06/22 19:30 03/06/22 19:41 Pulse Rate 85 87 90 Blood Pressure Pulse Oximetry 96 93 93 Oxygen Delivery Method 03/06/22 19:41 03/06/22 20:00 03/06/22 20:17 Pulse Rate 91 H 87 Blood Pressure 213/89 H Pulse Oximetry 95 95 Oxygen Delivery Method 03/06/22 20:17 03/06/22 20:20 03/06/22 20:20 Pulse Rate 91 H Blood Pressure 155/75 H 153/73 H Pulse Oximetry 94 Oxygen Delivery Method 03/06/22 20:30 03/06/22 20:40 03/06/22 20:40 Pulse Rate 89 87 Blood Pressure 142/81 H Pulse Oximetry 93 96 Oxygen Delivery Method 03/06/22 21:00 03/06/22 21:00 03/06/22 21:20 Pulse Rate 91 H 84 Blood Pressure 152/75 H Pulse Oximetry 95 94 Oxygen Delivery Method 03/06/22 21:20 03/06/22 21:29 03/06/22 21:29 Pulse Rate 84 Blood Pressure 146/80 H 163/82 H Pulse Oximetry 95 Oxygen Delivery Method 03/06/22 21:30 03/06/22 21:40 03/06/22 21:40 Pulse Rate 83 82 Blood Pressure 159/74 H Pulse Oximetry 95 94 Oxygen Delivery Method 03/06/22 22:00 03/06/22 22:00 Pulse Rate 86 Blood Pressure 135/63 Pulse Oximetry 96 Oxygen Delivery Method Room Air MDM - Abdominal Pain Lab Data Result diagrams: 03/06/22 19:02 03/06/22 19:02 Labs: Lab Results 03/06/22 03/06/22 03/06/22 Range/Units 18:49 19:02 19:02 WBC 7.0 (4.5-11.0) X10^3/uL RBC 4.37 (4.0-5.2) X10^6/uL Hgb 13.3 (12.0-16.0) g/dL Hct 38.7 (36-46) % MCV 88.6 (80-100) fL MCH 30.5 (26-34) PG MCHC 34.4 (30-36) % RDW 12.9 (11.6-14.8) % Plt Count 148 L (150-400) X10^3/uL Neut % (Auto) 83.5 H (50-75) % Lymph % (Auto) 6.7 L (25-40) % [place] % (Auto) 7.6 (3-14) % Eos % (Auto) 1.6 L (2-4) % Baso % (Auto) 0.6 (0-2) % Neut # (Auto) 5800 (4600-6140) /uL Lymph # (Auto) 500 L (1330-3878) /uL [place] # (Auto) 500 (0-900) /uL Eos # (Auto) 100 (0-450) /uL Baso # (Auto) 0 (0-100) /uL Sodium 139 (137-145) mmol/L Potassium 3.9 (3.4-5.1) mmol/L Chloride 103 (98-107) mmol/L Carbon Dioxide 26 (22-32) mmol/L BUN 11 (7-17) mg/dL Creatinine 0.82 (0.52-1.04) mg/dL Estimated GFR > 60 (>60) mL/min BUN/Creatinine Ratio 13.4 (6-22) Glucose 233 H (80-110) mg/dL Lactate (0.7-2.1) mmol/L Calcium 8.8 (8.4-10.2) mg/dL Total Bilirubin 0.6 (0.2-1.3) mg/dL AST 40 H (14-36) IU/L ALT 34 (<35) IU/L Alkaline Phosphatase 89 (38-126) U/L Total Creatine Kinase (30-135) U/L CK-MB (CK-2) CK-MB (CK-2) Rel Index Troponin I (0.01-0.034) ng/mL Total Protein 7.6 (6.3-8.2) g/dL Albumin 3.9 (3.5-5.0) g/dL Globulin 3.7 (1.7-4.1) g/dL Albumin/Globulin Ratio 1.1 (1.0-2.8) Lipase 186 (23-300) U/L Procalcitonin (<0.5) ng/mL SARS-CoV-2 (PCR) Negative (Negative) Influenza A (RT-PCR) Flu a positive H (NEGATIVE) Influenza B (RT-PCR) Flu b negative (NEGATIVE) RSV (PCR) Negative (Negative) 03/06/22 03/06/2222 Range/Units 19:02 19:02 19:02 WBC (4.5-11.0) X10^3/uL RBC (4.0-5.2) X10^6/uL Hgb (12.0-16.0) g/dL Hct (36-46) % MCV (80-100) fL MCH (26-34) PG MCHC (30-36) % RDW (11.6-14.8) % Plt Count (150-400) X10^3/uL Neut % (Auto) (50-75) % Lymph % (Auto) (25-40) % [place] % (Auto) (3-14) % Eos % (Auto) (2-4) % Baso % (Auto) (0-2) % Neut # (Auto) (8189-0021) /uL Lymph # (Auto) (7901-0291) /uL [place] # (Auto) (0-900) /uL Eos # (Auto) (0-450) /uL Baso # (Auto) (0-100) /uL Sodium (137-145) mmol/L Potassium (3.4-5.1) mmol/L Chloride (98-107) mmol/L Carbon Dioxide (22-32) mmol/L BUN (7-17) mg/dL Creatinine (0.52-1.04) mg/dL Estimated GFR (>60) mL/min BUN/Creatinine Ratio (6-22) Glucose (80-110) mg/dL Lactate 2.6 H (0.7-2.1) mmol/L Calcium (8.4-10.2) mg/dL Total Bilirubin (0.2-1.3) mg/dL AST (14-36) IU/L ALT (<35) IU/L Alkaline Phosphatase (38-126) U/L Total Creatine Kinase 80 (30-135) U/L CK-MB (CK-2) TNP CK-MB (CK-2) Rel Index TNP Troponin I < 0.012 (0.01-0.034) ng/mL Total Protein (6.3-8.2) g/dL Albumin (3.5-5.0) g/dL Globulin (1.7-4.1) g/dL Albumin/Globulin Ratio (1.0-2.8) Lipase (23-300) U/L Procalcitonin 0.08 (<0.5) ng/mL SARS-CoV-2 (PCR) (Negative) Influenza A (RT-PCR) (NEGATIVE) Influenza B (RT-PCR) (NEGATIVE) RSV (PCR) (Negative) 03/06/22 Range/Units 21:46 WBC (4.5-11.0) X10^3/uL RBC (4.0-5.2) X10^6/uL Hgb (12.0-16.0) g/dL Hct (36-46) % MCV (80-100) fL MCH (26-34) PG MCHC (30-36) % RDW (11.6-14.8) % Plt Count (150-400) X10^3/uL Neut % (Auto) (50-75) % Lymph % (Auto) (25-40) % [place] % (Auto) (3-14) % Eos % (Auto) (2-4) % Baso % (Auto) (0-2) % Neut # (Auto) (3013-2303) /uL Lymph # (Auto) (2324-4848) /uL [place] # (Auto) (0-900) /uL Eos # (Auto) (0-450) /uL Baso # (Auto) (0-100) /uL Sodium (137-145) mmol/L Potassium (3.4-5.1) mmol/L Chloride (98-107) mmol/L Carbon Dioxide (22-32) mmol/L BUN (7-17) mg/dL Creatinine (0.52-1.04) mg/dL Estimated GFR (>60) mL/min BUN/Creatinine Ratio (6-22) Glucose (80-110) mg/dL Lactate 1.7 (0.7-2.1) mmol/L Calcium (8.4-10.2) mg/dL Total Bilirubin (0.2-1.3) mg/dL AST (14-36) IU/L ALT (<35) IU/L Alkaline Phosphatase (38-126) U/L Total Creatine Kinase (30-135) U/L CK-MB (CK-2) CK-MB (CK-2) Rel Index Troponin I (0.01-0.034) ng/mL Total Protein (6.3-8.2) g/dL Albumin (3.5-5.0) g/dL Globulin (1.7-4.1) g/dL Albumin/Globulin Ratio (1.0-2.8) Lipase (23-300) U/L Procalcitonin (<0.5) ng/mL SARS-CoV-2 (PCR) (Negative) Influenza A (RT-PCR) (NEGATIVE) Influenza B (RT-PCR) (NEGATIVE) RSV (PCR) (Negative) Imaging Data US - abdomen: Radiologist's Impression: Ultrasound Report Signed Patient: Karina Flaherty MR#: [id number] : 1950 Acct:[id number] Age/Sex: 71 / F Date of Service: 03/06/22 Loc: ED Accession Number: [id number] ?? Procedure: US abdomen limited Ordering Provider: Laureen Zamora D.O. PROCEDURE:? US ABDOMEN LIMITED ? INDICATIONS:? RIGHT UPPER QUADRANT PAIN ? TECHNIQUE:? Real-time scanning was performed of the right upper quadrant, with image documen tation.? ? COMPARISON:? [facility], CT, CT KIDNEY URETER BLADDER (KUB), 03/24/2020, 8:30.? [facility], CT, CT ABDOMEN PELVIS W CON, 06/10/2021, 21:46. ? FINDINGS:? ? Liver:? Liver measures 16.4 cm.? Increased in echogenicity.? Decreased sonographic penetration poured portal vein demonstrates hepatopetal flow.? ? Gallbladder:? Within normal limits in size.? Mobile gallstone measuring 1.9 cm.? Gallbladder wall measures 3-3.5 mm and is minimally thickened.? No pericholecystic fluid. Negative sonographic Bird's sign.? ? Biliary ducts:? Extrahepatic bile duct caliber measures 15 mm.? Normal is 6-7 mm or less in diameter, or 10 mm or less post-cholecystectomy.? ? Pancreas:? Not well seen. ? Miscellaneous:? No free abdominal fluid.? ? ? IMPRESSION:? Technically limited exam.? ? 1. Increased hepatic echogenicity most consistent with hepatic steatosis. Other forms of hepatocellular disease could have similar appearance. ? 2. Gallbladder wall is minimally thickened.? However, no pericholecystic fluid or sonographic Bird's sign to suggest acute cholecystitis.? There is a mobile gal lstone measuring 1.9 cm.? -HIDA scan could be considered for further evaluation. ? 3. Extrahepatic bile ducts are dilated.? However, this appears similar to the CT from June 2021. -MRCP could be considered for further evaluation of the bile ducts.? ? Dictated by: Yovany Molina M.D. on 03/06/2022 at 20:37 ? ? Chest x-ray: Radiologist's Impression: Signed Patient: Karina Flaherty MR#: [id number] : 1950 Acct:[id number] Age/Sex: 71 / F Date of Service: 03/06/22 Loc: ED Accession Number: [id number] ?? Procedure: XR chest 1V Ordering Provider: Laureen Zamora D.O. PROCEDURE:? XR CHEST 1V ? INDICATIONS:? sob ? TECHNIQUE:? One view of the chest was acquired.? ? COMPARISON:? [facility], , XR CHEST 1V, 03/25/2019, 16:09. ? FINDINGS:? ? Surgical changes and devices:? None.? ? Lungs and pleura:? Possible mild opacity at the left lung base.? No pleural effusions. ? Mediastinum:? Mediastinal contours appear normal.? Heart size is normal.? ? Bones and chest wall:? No suspicious bony lesions.? Overlying soft tissues appear unremarkable.? ? IMPRESSION:? Possible mild opacity at the left lung base may represent atelectasis or early airspace disease.? Consider future imaging surveillance to assess for resolution. ? ? ? Dictated by: Moody Dahl M.D. on 03/06/2022 at 20:15 ? ? Approved by: Moody Dahl M.D. on 03/06/2022 at 20:16 ? ECG Data Interpretation: Normal sinus rhythm rate 84 PA interval 150 QRS [address] changes no T- wave inversion similar to previous EKG MDM Narrative Medical decision making narrative: Patient has fever overall not feeling well. Upper respiratory symptoms cons istent with influenza a which she is positive for. However she is having significant abdominal pain she is found to have a 1.9 cm mobile gallstone which likely is causing her nausea vomiting and pain. Pain is controlled with Toradol and morphine. She has a normal bilirubin no elevation of lipase or liver enzymes. No sign of acute cholecystitis. She does not have any significant leukocytosis or elevated lactate sign of sepsis. At this time I see no need for any further imaging. At this time I discussed with Dr. Sanz, surgery who agrees with holding off surgery until recovers for influenza. I discussed warning signs with patient and family and when to return to ED. Discharge Plan Departure Patient Disposition: Home Clinical Impression: Gallstone, Influenza A Instructions: DI for Gallstones, DI for H1N1 Influenza -- Adult Activity Restrictions/Additional Instructions: *You have been diagnosed with influenza a and gallstones *What to do: He has a very large gallstone in her gallbladder likely causing her pain and nausea. However ideally he should recover from her influenza before having surgery. At this time recommend gallbladder diet which is low fat and pain control. Continue with fluid intake and fever control for influenza. *Continue to take medications as directed [place] 1 tablet every 6 hours if needed for severe pain Ibuprofen 600 mg every 6 hours if needed for [id number] pain *Follow up with your primary care provider in 2-3 days or call [phone] *Return to ER if you should have increasing pain fever persistent vomiting not tolerating fluids or any new, worsening or concerning symptoms CONTROLLED SUBSTANCE DISCHARGE (Narcotoic/benzodiazepine/Flexeril/Phenergan) 1. You have been prescribed narcotic medications, it does have acetaminophen/ Tylenol/paracetamol in it, DO NOT TAKE MORE THAN 4,00mg in 24 hours of Tylenol. TRAMADOL DOES NOT CONTAIN TYLENOL 2. Please understand that we cannot provide further refills of narcotics, benzodiazepines or controlled substances through the ED and her pain management will need to be through your provider. 3. While on these medications you cannot drive or operate heavy machinery. 4. You cannot sign legal documents or perform any duties such as this. 5. As long as you're taking opiate pain medications he should also be taking a stool softener such as Colace, Dulcolax, MiraLAX or prune juice, to help avoid constipation. Prescriptions: New hydrocodone-acetaminophen 5-325 mg tablet 1 tab PO Q6H PRN (Reason: pain) Qty: 10 0RF ondansetron 4 mg tablet,disintegrating 4 mg PO Q8H PRN (Reason: nausea and vomiting) Qty: 10 0RF No Action metformin 500 mg tablet 500 mg PO QPM Label Comments: with dinner albuterol sulfate 2.5 mg /3 mL (0.083 %) solution for nebulization 1.25 mg INHALATION Q4H PRN (Reason: Shortness Of Breath) aspirin 325 mg tablet 325 mg PO DAILY lisinopril 20 mg tablet 40 mg PO DAILY Label Comments: take 2 tablets in morning and 1 tablet in the evening. estradiol [Estrace] 1 mg tablet 1 mg PO DAILY gabapentin 300 mg capsule 900 mg PO TID zolpidem 5 mg tablet 5 - 10 mg PO BEDTIME PRN (Reason: Sleep) atenolol 50 mg tablet 50 mg PO DAILY ciprofloxacin HCl [Cipro] 500 mg tablet 500 mg PO BID Qty: 20 0RF metronidazole 500 mg tablet 500 mg PO TID Qty: 30 0RF ondansetron 4 mg tablet,disintegrating 4 mg PO Q8H PRN (Reason: nausea and vomiting) Qty: 10 0RF hydrocodone-acetaminophen 5-325 mg tablet 1 tab PO Q6H PRN (Reason: pain) Qty: 20 0RF lisinopril 20 mg Tablet 20 mg PO QPM albuterol sulfate 90 mcg/actuation Hfa Aerosol Inhaler 2 puff INHALATION Q4H PRN (Reason: Wheezing) metronidazole [Flagyl] 500 mg tablet 500 mg PO TID Qty: 30 0RF ciprofloxacin HCl 500 mg tablet 500 mg PO BID Qty: 20 0RF sulfamethoxazole-trimethoprim 800-160 mg tablet 1 tab PO BID Qty: 14 0RF amoxicillin-pot clavulanate [Augmentin] 875-125 mg tablet 1 tab PO BID Qty: 14 0RF Referrals: Talha Durham MD [Primary Care Provider] - Visit Report Forms: Patient Portal/API
[2022-03-06 19:18] LABS: Add Manual Diff / Slide Review NO; Basophils Absolute Auto 0 /uL (0-100); Basophils Percent Auto 0.6 % (0-2); Eosinophils Absolute Auto 100 /uL (0-450); Eosinophils Percent Auto 1.6 % (2-4); Hematocrit 38.7 % (36-46); Hemoglobin 13.3 g/dL (12.0-16.0); Lymphocytes Absolute Auto 500 /uL (1100-4500); Lymphocytes Percent Auto 6.7 % (25-40); Mean Corpuscular HGB Conc 34.4 % (30-36); Mean Corpuscular Hemoglobin 30.5 PG (26-34); Mean Corpuscular Volume 88.6 fL (80-100); Monocytes Absolute Auto 500 /uL (0-900); Monocytes Percent Auto 7.6 % (3-14); Neutrophils Absolute Auto 5800 /uL (1500-7000); Neutrophils Percent Auto 83.5 % (50-75); Platelet Count 148 X10^3/uL (150-400); Red Blood Cell Count 4.37 X10^6/uL (4.0-5.2); Red Cell Distribution Width 12.9 % (11.6-14.8)
[2022-03-06] MEDS: SODIUM CHLORIDE 0.9% 1,000 ML 1000 ML IV (19:23)
[2022-03-06] MEDS: KETOROLAC 30 MG/ML VIAL 15 MG IV (19:23)
[2022-03-06] MEDS: PANTOPRAZOLE 40 MG VIAL IV (19:24)
[2022-03-06 19:34] LABS: Creatine Kinase 80 U/L (30-135); Lactate (Lactic Acid) 2.6 mmol/L (0.7-2.1)
[2022-03-06 19:35] LABS: Influenza A - CEPHEID Flu A POSITIVE (NEGATIVE); Influenza B - CEPHEID Flu B NEGATIVE (NEGATIVE); Respiratory Syncytial Virus Negative (Negative)
[2022-03-06 19:36] LABS: Alanine Aminotransferase 34 IU/L (<35); Albumin 3.9 g/dL (3.5-5.0); Albumin Globulin Ratio 1.1 (1.0-2.8); Alkaline Phosphatase 89 U/L (38-126); Aspartate Aminotransferase 40 IU/L (14-36); BUN Creatinine Ratio 13.4 (6-22); Bilirubin Total 0.6 mg/dL (0.2-1.3); Blood Urea Nitrogen 11 mg/dL (7-17); Calcium 8.8 mg/dL (8.4-10.2); Carbon Dioxide 26 mmol/L (22-32); Chloride 103 mmol/L (98-107); Estimated Glomerular Filt Rate > 60 mL/min (>60); Globulin 3.7 g/dL (1.7-4.1); Glucose 233 mg/dL (80-110); HEMOLYSIS < 15 (0-50); Lipase 186 U/L (23-300); Potassium 3.9 mmol/L (3.4-5.1); Sodium 139 mmol/L (137-145); Total Protein 7.6 g/dL (6.3-8.2)
[2022-03-06 19:36] LABS: COVID-19 CEPHEID 4-PLEX PCR Negative (Negative)
[2022-03-06 19:47] LABS: Troponin I < 0.012 ng/mL (0.01-0.034)
[2022-03-06 19:52] LABS: Procalcitonin 0.08 ng/mL (<0.5)
[2022-03-06 21:17] LABS: Reflexed Lactate in 2 Hours Y
[2022-03-06] MEDS: MORPHINE 4 MG/ML INJ IV (21:18)
[2022-03-06 22:02] LABS: Lactate 2HR (Lactic Acid Rflx) 1.7 mmol/L (0.7-2.1)
[2022-03-06] MEDS: HYDROCODONE/ACET 5/325 PREPACK 1 BOTTLE MISC (22:30)
[2022-03-06] MEDS: ONDANSETRON 4 MG ODT PREPACK 1 BOTTLE MISC (22:30)
== END 2022-03-06 22:39 | disposition home or self-care (01) ==
PROVIDERS: Emergency Provider Emergency Medicine; PCP Internal Medicine
DX: J10.1 Influenza due to other identified influenza virus with other respiratory manifestations (principal); K80.80 Other cholelithiasis without obstruction
CPT/HCPCS: 0241U; 36415; 71045; 76705; 80053; 82550; 83605; 83690; 84145; 84484; 85025; 87040; 93005; 99284; C9113; J1885; J2270; J2405

== ENCOUNTER 2022-03-08 15:33 | Inpatient (IN) | payer MEDICARE, OTHER, SELFPAY ==
[2022-03-08] VITALS (23 sets, daily range): BP systolic 130–189; BP diastolic 62–135; PULSE 77–98; RESP 12–29; TEMP 36.4–37; O2SAT 88–100; BMI 34.4
[2022-03-08] MEDS: ONDANSETRON 4 MG/2 ML INJ IV ×2 (16:18→21:24)
[2022-03-08] MEDS: ALBUTEROL/IPRATROPIUM 3 ML AMPUL INH ×3 (16:32→19:23)
--- NOTE | 2022-03-08 16:58 | ED.GENADULT ---
HPI - General Adult General Chief complaint: Abdominal Pain Stated complaint: x2 ago has not improved Time Seen by Provider: 03/08/22 16:29 Source: patient Mode of arrival: Ambulatory Limitations: no limitations History of Present Illness HPI narrative: 71-year-old female is here for evaluation of upper abdominal discomfort. She was seen here in the emergency department a couple days ago for very similar discomfort. Had an ultrasound performed. Was told that she had gallstones. Was told that she needed to follow-up with general surgery. Since that time she has had increasing discomfort. She also has a history of asthma and is having wheezing and problems breathing. He is influenza A positive. She is vomiting and can not keep her medications down. Related Data Home Medications Medication Instructions Recorded Confirmed albuterol sulfate 2.5 mg/3 mL 1.25 mg inhalation Q4H PRN 10/04/17 06/29/18 (0.083 %) solution for nebulization Shortness Of Breath aspirin 325 mg tablet 325 mg PO DAILY 10/04/17 06/29/18 atenolol 50 mg tablet 50 mg PO DAILY 10/04/17 06/29/18 estradiol 1 mg tablet (Estrace) 1 mg PO DAILY 10/04/17 06/29/18 gabapentin 300 mg capsule 900 mg PO TID 10/04/17 06/29/18 lisinopril 20 mg tablet 40 mg PO DAILY 10/04/17 06/29/18 metformin 500 mg tablet 500 mg PO QPM 10/04/17 06/29/18 zolpidem 5 mg tablet 5 - 10 mg PO BEDTIME PRN Sleep 10/04/17 06/29/18 albuterol sulfate 90 mcg/actuation 2 puff inhalation Q4H PRN Wheezing 10/24/17 06/29/18 aerosol inhaler lisinopril 20 mg tablet 20 mg PO QPM 10/24/17 06/29/18 Previous Rx's Medication Instructions Recorded ciprofloxacin HCl 500 mg tablet 500 mg PO BID #20 tabs 09/09/18 metronidazole 500 mg tablet 500 mg PO TID #30 tabs 09/09/18 (Flagyl) amoxicillin 875 mg-potassium 1 tab PO BID #14 tabs 03/24/20 clavulanate 125 mg tablet (Augmentin) sulfamethoxazole 800 1 tab PO BID #14 tabs 03/24/20 mg-trimethoprim 160 mg tablet ciprofloxacin HCl 500 mg tablet 500 mg PO BID #20 tabs 06/10/21 (Cipro) hydrocodone 5 mg-acetaminophen 325 1 tab PO Q6H PRN pain #20 tabs 06/10/21 mg tablet metronidazole 500 mg tablet 500 mg PO TID #30 tabs 06/10/21 ondansetron 4 mg disintegrating 4 mg PO Q8H PRN nausea and 06/10/21 tablet vomiting #10 tabs hydrocodone 5 mg-acetaminophen 325 1 tab PO Q6H PRN pain #10 tabs 03/06/22 mg tablet ondansetron 4 mg disintegrating 4 mg PO Q8H PRN nausea and 03/06/22 tablet vomiting #10 tabs Allergies Allergy/AdvReac Type Severity Reaction Status Date / Time cephalexin [From Keflex] Allergy Severe nausea and Verified 03/08/22 15:47 vomiting erythromycin base Allergy Intermediate skin rash, Verified 03/08/22 15:47 hives belladonna alkaloids Allergy unknown Verified 03/08/22 15:47 metoclopramide [From Reglan] Allergy unknown Verified 03/08/22 15:47 Sulfa (Sulfonamide Allergy patient Verified 03/08/22 15:47 Antibiotics) does not recall, possibly nausea/vomiting prochlorperazine AdvReac Severe psych Verified 03/08/22 15:47 [From Compazine] reaction amlodipine AdvReac Intermediate headache Verified 03/08/22 15:47 and flushing levofloxacin [From Levaquin] AdvReac Intermediate other Verified 03/08/22 15:47 hydrochlorothiazide AdvReac Mild muscle Verified 03/08/22 15:47 cramps nifedipine [From Procardia] AdvReac Unknown intolerance Verified 03/08/22 15:47 Review of Systems Review of Systems ROS Unobtainable: All systems reviewed & are unremarkable except as noted in HPI and below Patient History Medical History Chronic pain syndrome Hyperlipidemia associated with type 2 diabetes mellitus Hypertension associated with diabetes Musculoskeletal disorder Non-insulin dependent type 2 diabetes mellitus Surgical History H/O hysterectomy with oophorectomy Social History Smoking Status: Current every day smoker Smoking Status: Current every day smoker tobacco type: vaping alcohol intake frequency: 0-2 drinks per day Substance Use Type: marijuana Exam Initial Vital Signs Initial Vital Signs: Vital Signs Temperature 97.5 F L 03/08/22 15:43 Pulse Rate 95 H 03/08/22 15:43 Respiratory Rate 18 03/08/22 15:43 Blood Pressure 130/62 03/08/22 15:43 Pulse Oximetry 97 03/08/22 15:43 Oxygen Delivery Method 03/08/22 15:43 Const General: cooperative and No ill appearing [facility] Head: normal to inspection and normocephalic Resp Effort & Inspection: normal respiratory effort Auscultation: clear to auscultation bilaterally and wheezes Cardio Rate: regular rate Rhythm: regular rhythm GI Inspection: normal to inspection and non-distended Palpation: soft and tender Skin General: no rashes or lesions noted Neuro General: patient alert, patient awake and moves all extremities Extrem General: normal to inspection and capillary refill normal Psych Appearance: grossly normal and well kempt Scores GCS [place] coma scale eye opening: Spontaneous Julia coma scale verbal response: Orientated Julia coma scale motor response: Obey commands Julia coma scale total score: 15 Course Orders Ordered: ED Orders 03/08/22 15:49 EKG-12 Lead Stat 03/08/22 16:33 Comprehensive Metabolic Panel Stat Lipase Stat 03/08/22 17:00 US abdomen limited Stat 03/08/22 17:06 Complete Blood Count AUTO DIFF Stat 03/08/22 19:12 COVID19 -Nasal RAPID/Pre-Proc Stat Discontinued Medications Albuterol/Ipratropium (Albuterol/Ipratropium 3 Ml Ampul) 3 ml INH NOW ONE Stop: 03/08/22 16:30 Last Admin: 03/08/22 16:32 Dose: 3 ml Documented By: JOHN Albuterol/Ipratropium (Albuterol/Ipratropium 3 Ml Ampul) 3 ml INH NOW ONE Stop: 03/08/22 17:00 Last Admin: 03/08/22 17:48 Dose: 3 ml Documented By: RUSSELL Albuterol/Ipratropium (Albuterol/Ipratropium 3 Ml Ampul) 3 ml INH NOW ONE Stop: 03/08/22 18:51 Hydromorphone HCl (Hydromorphone 0.5 Mg Inj) 0.5 mg IV NOW ONE Stop: 03/08/22 18:51 Last Admin: 03/08/22 19:11 Dose: 0.5 mg Documented By: COLTON Sodium Chloride (Normal Saline 0.9%) 1,000 mls @ 1,000 mls/hr IV BOLUS ONE Stop: 03/08/22 17:58 Last Infusion: 03/08/22 18:13 Dose: 0 mls/hr Documented By: Admin: 03/08/22 17:06 Dose: 1,000 mls/hr Documented By: COLTON Piperacillin Sod/Tazobactam (Sod 4.5 gm/ Sodium Chloride) 100 mls @ 200 mls/hr IV NOW ONE Stop: 03/08/22 18:59 Last Admin: 03/08/22 19:12 Dose: 200 mls/hr Documented By: COLTON Morphine Sulfate (Morphine 4 Mg/Ml Inj) 4 mg IV NOW ONE Stop: 03/08/22 17:00 Last Admin: 03/08/22 17:05 Dose: 4 mg Documented By: COLTON Ondansetron HCl (Ondansetron 4 Mg/2 Ml Inj) 4 mg IV NOW ONE Stop: 03/08/22 15:50 Last Admin: 03/08/22 16:18 Dose: 4 mg Documented By: COLTON Vital Signs Vital signs: Vital Signs - 8 hr 03/08/22 15:43 03/08/22 16:33 03/08/22 15:56 Temperature 97.5 F L Pulse Rate 95 H 80 77 Respiratory Rate 18 22 Blood Pressure 130/62 Pulse Oximetry 97 95 95 Oxygen Delivery Method Room Air Room Air 03/08/22 15:57 03/08/22 15:57 03/08/22 16:00 Temperature Pulse Rate 81 79 Respiratory Rate 23 Blood Pressure 174/84 H Pulse Oximetry 97 97 Oxygen Delivery Method 03/08/22 16:05 03/08/22 16:05 03/08/22 16:30 Temperature Pulse Rate 80 77 Respiratory Rate 19 15 Blood Pressure 184/88 H Pulse Oximetry 95 96 Oxygen Delivery Method 03/08/22 17:00 03/08/22 17:13 03/08/22 17:13 Temperature Pulse Rate 79 82 Respiratory Rate 25 H 29 H Blood Pressure 144/74 H Pulse Oximetry 95 97 Oxygen Delivery Method 03/08/22 17:30 03/08/22 17:30 03/08/22 17:57 Temperature Pulse Rate 77 Respiratory Rate 15 Blood Pressure 150/78 H Pulse Oximetry 88 L 96 Oxygen Delivery Method Room Air Room Air 03/08/22 18:00 03/08/22 18:01 03/08/22 18:01 Temperature Pulse Rate 86 90 Respiratory Rate 20 Blood Pressure 180/76 H Pulse Oximetry 94 92 Oxygen Delivery Method 03/08/22 18:23 03/08/22 18:23 03/08/22 18:30 Temperature Pulse Rate 92 H Respiratory Rate 22 Blood Pressure 182/135 H 171/74 H Pulse Oximetry 96 Oxygen Delivery Method 03/08/22 18:30 Temperature Pulse Rate 90 Respiratory Rate 12 Blood Pressure Pulse Oximetry 94 Oxygen Delivery Method Room Air Medical Decision Making Medical Records Medical records reviewed: Yes I reviewed the patient's medical records. Lab Data Lab results reviewed: Yes I reviewed the patient's lab results. Result diagrams: 03/08/22 17:06 03/08/22 16:33 Labs: Lab Results 03/08/22 03/08/22 Range/Units 16:33 17:06 WBC 3.3 L D (4.5-11.0) X10^3/uL RBC 4.33 (4.0-5.2) X10^6/uL Hgb 13.1 (12.0-16.0) g/dL Hct 38.7 (36-46) % MCV 89.3 (80-100) fL MCH 30.2 (26-34) PG MCHC 33.8 (30-36) % RDW 12.9 (11.6-14.8) % Plt Count 122 L (150-400) X10^3/uL Neut % (Auto) 68.0 (50-75) % Lymph % (Auto) 15.9 L (25-40) % [place] % (Auto) 14.9 H (3-14) % Eos % (Auto) 0.4 L (2-4) % Baso % (Auto) 0.8 (0-2) % Neut # (Auto) 2200 (1548-9825) /uL Lymph # (Auto) 500 L (5947-8593) /uL [place] # (Auto) 500 (0-900) /uL Eos # (Auto) 0 (0-450) /uL Baso # (Auto) 0 (0-100) /uL Sodium 135 L (137-145) mmol/L Potassium 3.7 (3.4-5.1) mmol/L Chloride 102 (98-107) mmol/L Carbon Dioxide 21 L (22-32) mmol/L BUN 9 (7-17) mg/dL Creatinine 0.78 (0.52-1.04) mg/dL Estimated GFR > 60 (>60) mL/min BUN/Creatinine Ratio 11.5 (6-22) Glucose 145 H (80-110) mg/dL Calcium 8.4 (8.4-10.2) mg/dL Total Bilirubin 1.3 (0.2-1.3) mg/dL AST 89 H (14-36) IU/L ALT 45 H (<35) IU/L Alkaline Phosphatase 88 (38-126) U/L Total Protein 7.5 (6.3-8.2) g/dL Albumin 3.7 (3.5-5.0) g/dL Globulin 3.8 (1.7-4.1) g/dL Albumin/Globulin Ratio 1.0 (1.0-2.8) Lipase 73 D (23-300) U/L Urine Dip Bedside Urine Glucose Negative Bedside Urine Bilirubin - Negative Bedside Urine Ketone +/- 5 Urine Specific [place] 1.010 Bedside Urine Occult Blood - Negative Bedside Urine pH 6.0 Bedside Urine Protein - Negative Bedside Urine Urobilinogen - Negative Bedside Urine Nitrite - Negative Bedside Urine Leukocytes - Negative Esterase Point of care testing: Urine Dip Bedside Urine Glucose Negative Bedside Urine Bilirubin - Negative Bedside Urine Ketone +/- 5 Urine Specific [place] 1.010 Bedside Urine Occult Blood - Negative Bedside Urine pH 6.0 Bedside Urine Protein - Negative Bedside Urine Urobilinogen - Negative Bedside Urine Nitrite - Negative Bedside Urine Leukocytes - Negative Esterase Imaging Data US - abdomen: Radiologist's Impression: [address] [address] Ultrasound Report Signed Patient: Karina Flaherty MR#: [id number] : 1950 Acct:[id number] Age/Sex: 71 / F Date of Service: 03/08/22 Loc: ED Accession Number: [id number] ?? Procedure: US abdomen limited Ordering Provider: Manan Gann D.O. PROCEDURE:? US ABDOMEN LIMITED ? INDICATIONS:? RUQ us eval for GB pathology ? TECHNIQUE:? Real-time scanning was performed of the abdominal and retroperitoneal organs, with image documentation.? ? COMPARISON:? [facility], , US ABDOMEN LIMITED, 03/06/2022, 19:45. ? FINDINGS:? ? Liver:? Liver is normal in size and homogeneous in echotexture.? ? Gallbladder:? There is sludge and a mobile gallstone in the gallbladder.? No wall thickening.? Sonographic Bird's is positive.? The gallbladder is hydropic measuring 10.3 x 5.7 x 5.5 cm. ? Biliary ducts:? Common bile duct is dilated measuring 15.7 mm. ? Pancreas:? Not well seen. ? IMPRESSION:? Cholecystitis with dilation of the common bile duct concerning for choledocholithiasis. ? Dictated by: Sathish Rodriguez M.D. on 03/08/2022 at 18:10 ? ? Approved by: Sathish Rodriguez M.D. on 03/08/2022 at 18:12 ECG Data Attestation: I personally reviewed and interpreted this ECG as follows: Interpretation: Sinus rhythm Ventricular rate is 77 Normal axis Normal QRS Normal QTC No ST T wave changes MDM Narrative Medical decision making narrative: Findings today consistent with acute cholecystitis. LFTs are unremarkable. I did discuss the case with Dr. Shirley who recommended the patient be admitted to the hospital and they could do an intraoperative cholangiogram. Patient was given antibiotics. Is known to be flu A positive. Patient aware of need for admission to the hospital. Discharge Plan Departure Patient Disposition: Admitted As Inpatient Clinical Impression: Cholelithiasis, Influenza A
--- NOTE | 2022-03-08 17:00 | DI.US.S_ITS ---
PROCEDURE: US ABDOMEN LIMITED INDICATIONS: RUQ us eval for GB pathology TECHNIQUE: Real-time scanning was performed of the abdominal and retroperitoneal organs, with image documentation. COMPARISON: [facility], US, US ABDOMEN LIMITED, 03/06/2022, 19:45. FINDINGS: Liver: Liver is normal in size and homogeneous in echotexture. Gallbladder: There is sludge and a mobile gallstone in the gallbladder. No wall thickening. Sonographic Bird's is positive. The gallbladder is hydropic measuring 10.3 x 5.7 x 5.5 cm. Biliary ducts: Common bile duct is dilated measuring 15.7 mm. Pancreas: Not well seen. IMPRESSION: Cholecystitis with dilation of the common bile duct concerning for choledocholithiasis. Dictated by: Sathish Rodriguez M.D. on 03/08/2022 at 18:10 Approved by: Sathish Rodriguez M.D. on 03/08/2022 at 18:12
[2022-03-08 17:02] LABS: Alanine Aminotransferase 45 IU/L (<35); Albumin 3.7 g/dL (3.5-5.0); Alkaline Phosphatase 88 U/L (38-126); Aspartate Aminotransferase 89 IU/L (14-36); BUN Creatinine Ratio 11.5 (6-22); Bilirubin Total 1.3 mg/dL (0.2-1.3); Blood Urea Nitrogen 9 mg/dL (7-17); Calcium 8.4 mg/dL (8.4-10.2); Carbon Dioxide 21 mmol/L (22-32); Chloride 102 mmol/L (98-107); Estimated Glomerular Filt Rate > 60 mL/min (>60); Globulin 3.8 g/dL (1.7-4.1); Glucose 145 mg/dL (80-110); HEMOLYSIS 80 (0-50); Lipase 73 U/L (23-300); Potassium 3.7 mmol/L (3.4-5.1); Sodium 135 mmol/L (137-145); Total Protein 7.5 g/dL (6.3-8.2)
[2022-03-08] MEDS: MORPHINE 4 MG/ML INJ IV (17:05)
[2022-03-08] MEDS: SODIUM CHLORIDE 0.9% 1,000 ML 1000 ML IV (17:06)
[2022-03-08 17:21] LABS: Add Manual Diff / Slide Review NO; Basophils Absolute Auto 0 /uL (0-100); Basophils Percent Auto 0.8 % (0-2); Eosinophils Absolute Auto 0 /uL (0-450); Eosinophils Percent Auto 0.4 % (2-4); Hematocrit 38.7 % (36-46); Hemoglobin 13.1 g/dL (12.0-16.0); Lymphocytes Absolute Auto 500 /uL (1100-4500); Lymphocytes Percent Auto 15.9 % (25-40); Mean Corpuscular HGB Conc 33.8 % (30-36); Mean Corpuscular Hemoglobin 30.2 PG (26-34); Mean Corpuscular Volume 89.3 fL (80-100); Monocytes Absolute Auto 500 /uL (0-900); Monocytes Percent Auto 14.9 % (3-14); Neutrophils Absolute Auto 2200 /uL (1500-7000); Platelet Count 122 X10^3/uL (150-400); Red Blood Cell Count 4.33 X10^6/uL (4.0-5.2); Red Cell Distribution Width 12.9 % (11.6-14.8); White Blood Cell Count 3.3 X10^3/uL (4.5-11.0)
[2022-03-08] MEDS: HYDROMORPHONE 0.5 MG INJ IV (19:11)
[2022-03-08] MEDS: PIPERACILLIN/TAZO 4.5 GM in SODIUM CHLORIDE 0.9% 100 ML IV ×2 (19:12→22:48)
--- NOTE | 2022-03-08 19:12 | PC.NURSE ---
RT called for neb tx.
[2022-03-08 19:48] LABS: COVID19 -Nasal RAPID Negative (Negative)
[2022-03-08] MEDS: KETOROLAC 30 MG/ML VIAL IV (21:24)
[2022-03-08] MEDS: GABAPENTIN 300 MG CAPSULE 900 MG PO (21:25)
[2022-03-08] MEDS: DOCUSATE 100 MG CAPSULE PO (21:25)
[2022-03-08] MEDS: ACETAMINOPHEN 325 MG TABLET 1000 MG PO (21:25)
[2022-03-08] MEDS: SODIUM CHLORIDE 0.9% 1,000 ML 60 ML IV (21:28)
[2022-03-08 21:55] LABS: Add Manual Diff / Slide Review NO; Basophils Absolute Auto 0 /uL (0-100); Basophils Percent Auto 0.4 % (0-2); Eosinophils Absolute Auto 0 /uL (0-450); Eosinophils Percent Auto 0.3 % (2-4); Hemoglobin 12.1 g/dL (12.0-16.0); Lymphocytes Absolute Auto 500 /uL (1100-4500); Lymphocytes Percent Auto 19.2 % (25-40); Mean Corpuscular HGB Conc 33.6 % (30-36); Mean Corpuscular Hemoglobin 30.1 PG (26-34); Mean Corpuscular Volume 89.5 fL (80-100); Monocytes Absolute Auto 500 /uL (0-900); Monocytes Percent Auto 17.4 % (3-14); Neutrophils Absolute Auto 1700 /uL (1500-7000); Neutrophils Percent Auto 62.7 % (50-75); Platelet Count 106 X10^3/uL (150-400); Red Blood Cell Count 4.02 X10^6/uL (4.0-5.2); Red Cell Distribution Width 12.8 % (11.6-14.8); White Blood Cell Count 2.7 X10^3/uL (4.5-11.0)
[2022-03-08 22:06] LABS: Alanine Aminotransferase 42 IU/L (<35); Albumin 3.4 g/dL (3.5-5.0); Alkaline Phosphatase 76 U/L (38-126); Aspartate Aminotransferase 68 IU/L (14-36); BUN Creatinine Ratio 10.8 (6-22); Bilirubin Total 0.9 mg/dL (0.2-1.3); Blood Urea Nitrogen 9 mg/dL (7-17); Calcium 7.9 mg/dL (8.4-10.2); Carbon Dioxide 28 mmol/L (22-32); Chloride 103 mmol/L (98-107); Estimated Glomerular Filt Rate > 60 mL/min (>60); Globulin 3.3 g/dL (1.7-4.1); Glucose 156 mg/dL (80-110); HEMOLYSIS < 15 (0-50); Potassium 3.5 mmol/L (3.4-5.1); Sodium 139 mmol/L (137-145); Total Protein 6.7 g/dL (6.3-8.2)
[2022-03-08] MEDS: ZOLPIDEM 5 MG TABLET 10 MG PO (22:46)
[2022-03-09] MEDS: ONDANSETRON 4 MG/2 ML INJ IV ×5 (01:01→19:36)
[2022-03-09] MEDS: HYDROMORPHONE 1 MG INJ IV ×2 (01:12→06:53)
[2022-03-09] MEDS: KETOROLAC 30 MG/ML VIAL IV ×4 (03:25→20:29)
[2022-03-09 06:40] VITALS: BP 142/78; PULSE 69; RESP 23; TEMP 36.2; O2SAT 94
[2022-03-09] MEDS: PIPERACILLIN/TAZO 4.5 GM in SODIUM CHLORIDE 0.9% 100 ML IV (06:54)
[2022-03-09] MEDS: LORazepam 1 MG TABLET PO (08:55)
[2022-03-09] MEDS: SCOPOLAMINE 1 PATCH TOP (08:56)
[2022-03-09] MEDS: ENOXAPARIN 40 MG/0.4 ML SYRINGE SUBCUT (11:02)
[2022-03-09 11:44] VITALS: BP 161/72; PULSE 68; RESP 16; TEMP 36.6; O2SAT 94
[2022-03-09] MEDS: HYDROMORPHONE 0.5 MG INJ IV ×2 (13:15→20:27)
[2022-03-09] MEDS: LORazepam 2 MG/ML INJ 0.5 MG IV (13:15)
[2022-03-09] MEDS: GUAIFENESIN/DM 200/20 MG/10 ML UDC 5 ML PO (13:27)
[2022-03-09] MEDS: BENZONATATE 100 MG CAPSULE PO ×2 (13:28→20:27)
[2022-03-09] MEDS: atenoloL 50 MG TABLET 25 MG PO (13:28)
[2022-03-09] MEDS: GABAPENTIN 600 MG TABLET PO ×2 (13:29→20:27)
[2022-03-09] MEDS: SODIUM CHLORIDE 0.9% 1,000 ML 60 ML IV (13:57)
--- NOTE | 2022-03-09 14:30 | CM.DANOTE ---
Initial DCP Assessment Note Pt is a 71 yo female, resident of [place], arrives w/severe abd pain, N/V, admitted for management of what appears to be acute cholecystitis, per imaging: IMPRESSION: Cholecystitis with dilation of the common bile duct concerning for choledocholithiasis Patient also Flu A+ No written H+P at time of this note. PCP: Talha Durham Payer: ZIA/Aleida Reviewed chart, attempted to meet with patient but she was in a lot of distress. CITLALLI Stiles suggested waiting on assessment until patient felt better Patient's daughter Mallory is one of the charge nurses here at ; it is expected that patient will likely return home upon medical clearance, with supportive family to assist in her recovery. r/o need for CM team will plan to follow closely in case any DC needs or concerns arise. TIMOTHY Cao Discharge Planning/Care Management CM Discharge Assessment Start: 03/09/22 14:27 Freq: Status: Active Protocol: Document 03/09/22 14:27 DAVE (Rec: 03/09/22 14:29 DAVE [id number]) Discharge Planning Assessment Assigned Loan Reviewer TIMOTHY Stuart DPOA/Assigned Designee Name Mallory Flaherty dtr Contact Information [phone] Advance Directives? No History Provided By Medical Record Prior Living Arrangements House Household Members family Type of transportation used prior to Drives own vehicle admit Independent with ADL's Yes Is patient alert and oriented? Yes Barriers to Discharge No Comment Home w/family expected upon discharge Discharge Plan Home Transportation Arrangement Family Referrals Initiated None needed Additional Comment At this time
[2022-03-09 15:00] VITALS: BP 140/61; PULSE 62; RESP 19; TEMP 37.1; O2SAT 96
[2022-03-09] MEDS: PIPERACILLIN/TAZO 3.375 GM in SODIUM CHLORIDE 0.9% 100 ML IV ×2 (15:28→22:08)
--- NOTE | 2022-03-09 16:31 | P.HP_ITS ---
History of Present Illness History of Present Illness Chief complaint: x2 ago has not improved Narrative: Ms. Flaherty presented to the emergency room last night with abdominal pain. She also is coughing and had many other family members that were sick. She has tested positive for influenza. She has a leukocytosis and had an ultrasound showing pericholecystic fluid and gallbladder wall thickening indicative of acute cholecystitis. She says that the pain has been going on and increasing for the last couple of days. At this point it is constant and unremitting. She has the associated symptoms of nausea and vomiting as well. She is feeling so ill with pain, nausea and vomiting that she is admitted. She is being treated for acute cholecystitis with IV antibiotics. She is continuing to cough and whe yolis pretty severely. In retrospect she thinks that she has had gallbladder issues in the past. She is not very hungry but would probably drink some fluids or eat Jell-O if offered. Patient History Medical History (Updated 03/09/22 @ 16:36 by Yocasta Shirley MD) Chronic pain syndrome Hyperlipidemia associated with type 2 diabetes mellitus Hypertension associated with diabetes Musculoskeletal disorder Non-insulin dependent type 2 diabetes mellitus Surgical History H/O hysterectomy with oophorectomy Family & Social History Social History: household members family Prior Living Arrangements House Safety & Behavioral: Feels Safe in Current Yes Environment Been Physically Hurt or No Threatened By a Person Tobacco & Substance use: Smoking Status Current every day smoker alcohol intake frequency 0-2 drinks per day Substance Use Type marijuana Meds Home Medications and Allergies Home Medications Medication Instructions Recorded Confirmed Type albuterol sulfate 2.5 mg/3 mL 1.25 mg inhalation Q4H PRN 10/04/17 03/08/22 History (0.083 %) solution for nebulization Shortness Of Breath atenolol 50 mg tablet 25 mg PO DAILY 10/04/17 03/08/22 History estradiol 1 mg tablet (Estrace) 0.5 mg PO DAILY 10/04/17 03/08/22 History gabapentin 300 mg capsule 600 mg PO TID 10/04/17 03/08/22 History metformin 500 mg tablet 500 mg PO DAILY 10/04/17 03/08/22 History zolpidem 5 mg tablet 10 mg PO BEDTIME 10/04/17 03/08/22 History albuterol sulfate 90 mcg/actuation 2 puff inhalation Q4H PRN Wheezing 10/24/17 03/08/22 History aerosol inhaler lisinopril 20 mg tablet 20 mg PO BID 10/24/17 03/08/22 History tramadol 50 mg tablet 50 - 100 mg PO Q6H PRN Pain (Scale 03/08/22 03/08/22 History Score 4-6) Allergies Allergy/AdvReac Type Severity Reaction Status Date / Time cephalexin [From Keflex] Allergy Severe nausea and Verified 03/08/22 15:47 vomiting erythromycin base Allergy Intermediate skin rash, Verified 03/08/22 15:47 hives belladonna alkaloids Allergy unknown Verified 03/08/22 15:47 metoclopramide [From Reglan] Allergy unknown Verified 03/08/22 15:47 Sulfa (Sulfonamide Allergy patient Verified 03/08/22 15:47 Antibiotics) does not recall, possibly nausea/vomiting prochlorperazine AdvReac Severe psych Verified 03/08/22 15:47 [From Compazine] reaction amlodipine AdvReac Intermediate headache Verified 03/08/22 15:47 and flushing levofloxacin [From Levaquin] AdvReac Intermediate other Verified 03/08/22 15:47 hydrochlorothiazide AdvReac Mild muscle Verified 03/08/22 15:47 cramps nifedipine [From Procardia] AdvReac Unknown intolerance Verified 03/08/22 15:47 Exam Vital Signs (past 8 hours): - 03/09/22 11:44 03/09/22 15:00 Temperature 97.8 F 98.8 F Pulse Rate 68 62 Respiratory Rate 16 19 Blood Pressure 161/72 H 140/61 Pulse Oximetry 94 96 Oxygen Flow Rate 0 0 Oxygen Delivery Method Nasal Cannula Oxygen Flow Rate 0 Const General: cooperative Nutritional Appearance: obese Orientation: oriented x3 Limitations: altered mental status HENMT Head: normal to inspection Resp Effort & Inspection: able to speak in complete sentences, audible wheezes, cough, grunting and labored Cardio Rate: regular rate GI Palpation: soft and tender (Epigastric and right upper quadrant.) Skin General: no rashes or lesions noted Extrem General: normal to inspection Psych Mood: anxious mood Objective Labs Result Diagrams: 03/08/22 21:44 03/08/22 21:44 Labs: Laboratory Results - last 24 hr 03/08/22 03/08/22 03/08/22 16:33 17:06 19:15 WBC 3.3 L D RBC 4.33 Hgb 13.1 Hct 38.7 MCV 89.3 MCH 30.2 MCHC 33.8 RDW 12.9 Plt Count 122 L Neut % (Auto) 68.0 Lymph % (Auto) 15.9 L [place] % (Auto) 14.9 H Eos % (Auto) 0.4 L Baso % (Auto) 0.8 Neut # (Auto) 2200 Lymph # (Auto) 500 L [place] # (Auto) 500 Eos # (Auto) 0 Baso # (Auto) 0 Sodium 135 L Potassium 3.7 Chloride 102 Carbon Dioxide 21 L BUN 9 Creatinine 0.78 Estimated GFR > 60 BUN/Creatinine Ratio 11.5 Glucose 145 H Calcium 8.4 Total Bilirubin 1.3 AST 89 H ALT 45 H Alkaline Phosphatase 88 Total Protein 7.5 Albumin 3.7 Globulin 3.8 Albumin/Globulin Ratio 1.0 Lipase 73 D SARS-CoV-2 (PCR) Negative 03/08/22 03/08/22 21:44 21:44 WBC 2.7 L RBC 4.02 Hgb 12.1 Hct 36.0 MCV 89.5 MCH 30.1 MCHC 33.6 RDW 12.8 Plt Count 106 L Neut % (Auto) 62.7 Lymph % (Auto) 19.2 L [place] % (Auto) 17.4 H Eos % (Auto) 0.3 L Baso % (Auto) 0.4 Neut # (Auto) 1700 Lymph # (Auto) 500 L [place] # (Auto) 500 Eos # (Auto) 0 Baso # (Auto) 0 Sodium 139 Potassium 3.5 Chloride 103 Carbon Dioxide 28 BUN 9 Creatinine 0.83 Estimated GFR > 60 BUN/Creatinine Ratio 10.8 Glucose 156 H Calcium 7.9 L Total Bilirubin 0.9 AST 68 H ALT 42 H Alkaline Phosphatase 76 Total Protein 6.7 Albumin 3.4 L Globulin 3.3 Albumin/Globulin Ratio 1.0 Lipase SARS-CoV-2 (PCR) Assessment & Plan Assessment and plan (1) Influenza A: Status: Acute (2) Acute cholecystitis due to biliary calculus: Status: Acute Plan Due to the coughing and influenza. I think that deferring a cholecystectomy for now is prudent. I would recommend cholecystectomy at some point but I would like for her cough to be improved. We are treating with IV antibiotics for cholecystitis at this time and it providing supportive care for influenza. Will continue to check on her daily and possibly either plan on cholecystectomy later this week or if she improves enough that she would like to be discharged and follow-up as an outpatient in this case that may be a plan that works also. DVT prophylaxis, low-fat diet, home meds. Time Spent With Patient Critical Care time: I spent a total of [] minutes of critical care time on this patient's care today; this time is exclusive of procedural time. Quality VTE Deep Vein Thrombosis/Pulmonary Embolism Present on Admission: No
[2022-03-09 19:30] VITALS: BP 136/79; PULSE 61; RESP 18; TEMP 36.9; O2SAT 95
[2022-03-09] MEDS: DOCUSATE 100 MG CAPSULE PO (20:27)
[2022-03-09] MEDS: ZOLPIDEM 5 MG TABLET 10 MG PO (23:28)
[2022-03-09 23:39] VITALS: BP 111/67; PULSE 61; RESP 18; TEMP 36.6; O2SAT 95
[2022-03-10] MEDS: ONDANSETRON 4 MG/2 ML INJ IV ×4 (01:04→12:51)
[2022-03-10 02:54] VITALS: BP 141/78; PULSE 61; RESP 18; TEMP 36.7; O2SAT 96
[2022-03-10] MEDS: KETOROLAC 30 MG/ML VIAL IV ×2 (03:13→08:55)
[2022-03-10] MEDS: PIPERACILLIN/TAZO 3.375 GM in SODIUM CHLORIDE 0.9% 100 ML IV (06:45)
[2022-03-10] MEDS: SODIUM CHLORIDE 0.9% 1,000 ML 60 ML IV (07:31)
[2022-03-10] MEDS: GABAPENTIN 600 MG TABLET PO (08:50)
[2022-03-10] MEDS: DOCUSATE 100 MG CAPSULE PO (08:50)
[2022-03-10] MEDS: ENOXAPARIN 40 MG/0.4 ML SYRINGE SUBCUT (08:51)
[2022-03-10] MEDS: atenoloL 50 MG TABLET 25 MG PO (08:51)
[2022-03-10 09:09] VITALS: BP 142/90; PULSE 63; RESP 16; TEMP 36.3; O2SAT 98
[2022-03-10] MEDS: ACETAMINOPHEN 325 MG TABLET 975 MG PO (11:30)
[2022-03-10 11:51] VITALS: BP 143/75; PULSE 56; RESP 20; TEMP 36.5; O2SAT 97
--- NOTE | 2022-03-10 12:43 | P.DS_ITS ---
History of Present Illness History of Present Illness Chief complaint: x2 ago has not improved Narrative: Ms. Flaherty presented to the emergency room last night with abdominal pain. She also is coughing and had many other family members that were sick. She has tested positive for influenza. She has a leukocytosis and had an ultrasound showing pericholecystic fluid and gallbladder wall thickening indicative of acute cholecystitis. She says that the pain has been going on and increasing for the last couple of days. At this point it is constant and unremitting. She has the associated symptoms of nausea and vomiting as well. She is feeling so ill with pain, nausea and vomiting that she is admitted. She is being treated for acute cholecystitis with IV antibiotics. She is continuing to cough and whe yolis pretty severely. In retrospect she thinks that she has had gallbladder issues in the past. She is not very hungry but would probably drink some fluids or eat Jell-O if offered. Discharge Providers Provider Date of admission: 03/08/22 19:16 Discharge Date: 03/10/22 Primary care physician: Talha Durham MD Discharge provider: Yocasta Shirley MD Summary Hospital Course Discharge Diagnosis: 1. Acute cholecystitis 2. Influenza a Hospital Course: Ms. Flaherty presented to the emergency room with severe nausea and vomiting right upper quadrant pain. Sound revealed characteristics findings of acute cholecystitis. History and physical exam also consistent with the diagnosis. However she was coughing very hard and had several sick family members. She tested positive for influenza A. She spent the night in the hospital receiving IV antibiotics for acute cholecystitis. As well as IV medication for pain and nausea. On her 1st hospital day she was feeling better but still pretty symptomatic with the flu. She overall felt well enough and was discharged home to recover from the flu with close follow-up in my office to plan a cholecystectomy. She was given a 7 day course of antibiotics to take at home. Time Spent with Patient Time spent: Less than 30 minutes Exam Vital Signs (past 8 hours): - 03/10/22 09:09 03/10/22 11:51 Temperature 97.3 F L 97.7 F Pulse Rate 63 56 L Respiratory Rate 16 20 Blood Pressure 142/90 H 143/75 H Pulse Oximetry 98 97 Oxygen Flow Rate 0 0 Oxygen Delivery Method Nasal Cannula Oxygen Flow Rate 0 Const General: cooperative and comfortable Resp Effort & Inspection: normal respiratory effort and able to speak in complete sentences Tactile Fremitus: other (Cough) GI Palpation: soft and tender (Decreased tenderness. Still some mildly present right upper quadrant) Objective Labs Result Diagrams: 03/08/22 21:44 03/08/22 21:44 [facility] Medical History (Updated 03/09/22 @ 16:36 by Yocasta Shirley MD) Chronic pain syndrome Hyperlipidemia associated with type 2 diabetes mellitus Hypertension associated with diabetes Musculoskeletal disorder Non-insulin dependent type 2 diabetes mellitus Surgical History H/O hysterectomy with oophorectomy Social History household members: family Smoking Status: Current every day smoker Discharge Assessment & Plan Assessment and Plan Assessment: Acute cholecystitis, with obstruction of the cystic duct. Influenza A with treatment for respiratory distress in the setting of underlying pulmonary disease (asthma). Plan of Treatment: Will be discharged home today with oral antibiotics and close follow-up. Discharge Plan Discharge Plan Patient Disposition: Home Discharge orders & Medications Prescriptions: New docusate sodium 100 mg Capsule 100 mg PO BID Qty: 30 0RF amoxicillin-pot clavulanate [Augmentin] 500-125 mg tablet 1 tab PO Q12H Qty: 14 0RF hydrocodone-acetaminophen 5-325 mg tablet 2 tab PO Q6H PRN (Reason: pain) Qty: 20 0RF Rx Instructions: May take 1-2 tabs every 6 hours for pain ondansetron 4 mg tablet,disintegrating 4 mg PO Q4H PRN (Reason: nausea and vomiting) Qty: 30 0RF Continued metformin 500 mg tablet 500 mg PO DAILY Label Comments: with dinner albuterol sulfate 2.5 mg /3 mL (0.083 %) solution for nebulization 1.25 mg INHALATION Q4H PRN (Reason: Shortness Of Breath) estradiol [Estrace] 1 mg tablet 0.5 mg PO DAILY gabapentin 300 mg capsule 600 mg PO TID zolpidem 5 mg tablet 10 mg PO BEDTIME atenolol 50 mg tablet 25 mg PO DAILY tramadol 50 mg Tablet 50 - 100 mg PO Q6H PRN (Reason: Pain (Scale Score 4-6)) lisinopril 20 mg Tablet 20 mg PO BID albuterol sulfate 90 mcg/actuation Hfa Aerosol Inhaler 2 puff INHALATION Q4H PRN (Reason: Wheezing) Follow up/Referrals: Yocasta Shirley MD [Physician] - (Office appointment Mar 16 at 3 pm. Call office if needed to reschedule or with questions. (OR place held for Mar 30) ) Talha Durham MD [Primary Care Provider] - Diet/Activity/Treatments Diet: Low-fat Skin/Wound/Dressing Care Report to your healthcare provider any signs of infection, such as:: chills, fever, night sweats and increased pain Visit Report/Discharge Packet Instructions: Fat-Restricted Diet Discharge Data Primary Care Provider: Talha Durham V Quality VTE Deep Vein Thrombosis/Pulmonary Embolism Present on Admission: No
--- NOTE | 2022-03-10 13:06 | CM.DPC ---
DCP Discharge home Per Surgeon, pt stable for d/c home today to continue improving from Influenza A and oral abx with plan of outpt follow up with [facility] towards likely surgery for her infected gallbladder. Per RN, pt's Dtr will provide transport home today and will assist as needed and pt will likely be discharging home within the hour and no further needs identified at this time. Plan; Patient to d/c home via POV and close outpt f/u with Surgeon regarding her gallbladder. No further SW needs at this time. TIMOTHY Holbrook
--- NOTE | 2022-03-10 14:08 | PC.NURSE ---
Patient teaching done with daughter and patient at bedside. Patient is aware of new medications and diet changes. All questions and concerns were addressed. Patient was provided with a flutter valve and a incentive spirometer to take home, teaching done at bedside with daughter regarding proper usage of respiratory items. Patient states understanding of all discharge teaching. Escorted out via wheelchair, VSS, patient stable. No assistance needed to get into private vehicle. Aware of upcoming appt. with surgery on the .
== END 2022-03-10 14:51 | disposition home or self-care (01) | DRG 446 ==
LOC: ED 18:53 → AC 19:17
PROVIDERS: Admitting Provider Surgery; Emergency Provider Emergency Medicine; PCP Internal Medicine; Referring Provider Emergency Medicine; Visit Provider Surgery
DX: K80.01 Calculus of gallbladder with acute cholecystitis with obstruction (principal); J10.1 Influenza due to other identified influenza virus with other respiratory manifestations; F17.200 Nicotine dependence, unspecified, uncomplicated; J45.909 Unspecified asthma, uncomplicated; E11.9 Type 2 diabetes mellitus without complications; G89.4 Chronic pain syndrome; Z79.84 Long term (current) use of oral hypoglycemic drugs
CPT/HCPCS: 0241U; 36415; 71045; 76705; 80053; 81003; 82550; 82962; 83605; 83690; 84145; 84484; 85025; 87040; 87635; 93005; 94640; 96365; 96374; 96375; 99221; 99238; 99284; C9803; C9113; J1170; J1650; J1885; J2060; J2270; J2405; J2543

== ENCOUNTER → 2022-03-17 14:44 | Outpatient (CLI) | payer MEDICARE, OTHER, SELFPAY ==
[2022-03-08 19:22] VITALS: BMI 34.4
--- NOTE | 2022-03-17 14:49 | DI.RAD.S_ITS ---
PROCEDURE: XR CHEST 2V INDICATIONS: on going cough nt improving TECHNIQUE: 2 views of the chest were acquired. COMPARISON: [facility], , XR CHEST 1V, 03/06/2022, 19:25. FINDINGS: Surgical changes and devices: None. Lungs and pleura: Lungs are clear. No pleural effusions or pneumothorax. Mediastinum: Mediastinal contours are normal. Heart size is normal. Bones and chest wall: No suspicious bony abnormalities. Soft tissues appear unremarkable. IMPRESSION: No acute cardiopulmonary findings. Dictated by: Chayito Duke M.D. on 03/17/2022 at 17:09 Approved by: Chayito Duke M.D. on 03/17/2022 at 17:10
== END ==
PROVIDERS: PCP Internal Medicine; Referring Provider Internal Medicine; Visit Provider Internal Medicine
DX: J10.1 Influenza due to other identified influenza virus with other respiratory manifestations (principal); J45.909 Unspecified asthma, uncomplicated; R05.1 Acute cough
CPT/HCPCS: 71046

== ENCOUNTER → 2022-04-13 13:59 | Outpatient (CLI) | payer MEDICARE, OTHER, SELFPAY ==
[2022-03-08 19:22] VITALS: BMI 34.4
[2022-04-13 15:28] LABS: COVID19 -Nasal RAPID Negative (Negative)
== END ==
PROVIDERS: PCP Internal Medicine; Visit Provider Surgery
DX: Z01.812 Encounter for preprocedural laboratory examination (principal); Z20.822 Contact with and (suspected) exposure to COVID-19
CPT/HCPCS: 87635; C9803

== ENCOUNTER 2022-04-13 14:01 | Day surgery (SDC) | payer MEDICARE, OTHER, SELFPAY ==
[2022-03-08 19:22] VITALS: BMI 34.4
[2022-04-09 09:16] VITALS: BMI 31.3
[2022-04-13 15:27] VITALS: BP 170/94; PULSE 62; RESP 16; TEMP 36.4; O2SAT 96; BMI 30.8
[2022-04-13] MEDS: LACTATED RINGERS 1,000 ML 42 ML IV (15:59)
--- NOTE | 2022-04-13 17:19 | PM.PREOP ---
Pre-operative Note COVID-19 COVID-19 status: Negative Interval Note History & Physical reviewed/Exam performed by Physician: Yes Changes to H&P: No ASA Class (for procedural sedation): II
--- NOTE | 2022-04-13 18:00 | SUR.PREOP ---
Surgery canceled per Dr. Camarillo. IV removed and patient discharged at 1754
== END 2022-04-13 14:05 | disposition home or self-care (01) ==
PROVIDERS: PCP Internal Medicine; Referring Provider Surgery; Visit Provider Surgery
DX: Z53.9 Procedure and treatment not carried out, unspecified reason (principal); Z20.822 Contact with and (suspected) exposure to COVID-19; Z01.812 Encounter for preprocedural laboratory examination
CPT/HCPCS: 87635; J1100; J2250; J2405; J2704; J3010

== ENCOUNTER 2022-04-16 14:24 | Day surgery (SDC) | payer MEDICARE, OTHER, SELFPAY ==
[2022-03-08 19:22] VITALS: BMI 34.4
[2022-04-16] VITALS (9 sets, daily range): BP systolic 152–176; BP diastolic 74–91; PULSE 58–77; RESP 10–15; TEMP 36.1–36.6; O2SAT 96–97; BMI 30.5
--- NOTE | 2022-04-16 | DI.RAD.S_ITS ---
PROCEDURE: XR ABDOMEN 1V INDICATIONS: Laparoscopic Cholecystectomy TECHNIQUE: One view of the abdomen acquired. COMPARISON: [facility], , ABDOMEN LIMITED, 03/08/2022, 17:18. FINDINGS: The opacified common duct is mildly dilated. No discrete filling defects to suggest retained stones. No evidence of contrast extravasation. Contrast flows into the duodenum. IMPRESSION: 1. No evidence of retained common duct stones. Dictated by: Hola Kendrick M.D. on 04/17/2022 at 3:29 Approved by: Hola Kendrick M.D. on 04/17/2022 at 3:30
--- NOTE | 2022-04-16 | PATH_ITS ---
[facility] Accession Number: [id number] . 01 Material submitted: . gallbladder - GALLBLADDER . 01 Diagnosis: Gallbladder, Cholecystectomy: Chronic cholecystitis and cholelithiasis. Benign pericystic lymph node. Negative for neoplasia. MRV 04/21/2022 1638 Local . 01 Electronically signed: . Onelia Redmond MD, Pathologist NPI- [id number] . 01 Gross description: . The specimen is received in formalin labeled with the patient's name, , and gallbladder, and consists of an intact gallbladder measuring 7.7 x 3.2 x 2.7 cm. The serosa is johnson and wrinkled while the hepatic surface is rough and unremarkable. The cystic duct is received closed with a clamp, is inked blue, and a johnson pericystic lymph node is identified measuring 1.0 cm in greatest dimension. The lumen contains a moderate amount of dark green viscous bile and a single brown-black roughened calculus measuring 1.8 cm in greatest dimension not grossly obstructing the cystic duct. The mucosa is green and velvety with no pinpoint yellow areas of discoloration, polyps, or lesions identified. The valdes average 0.3 cm thick and field sales representative sections to include the cystic duct margin, intact lymph node candidate, and full thickness sections are submitted in cassette A1. ([id number]) /MRV 04/20/2022 1527 Local . 01 Pathologist provided ICD-10: K80.20 . 01 CPT . 953978 Specimen Comment: A courtesy copy of this report has been sent to [facility] Performed at: 01 [facility] [address] [place] [address] [address], [place], [place] [id number] MD Hola Agarwal MD Phone: [phone]
[2022-04-16] MEDS: LACTATED RINGERS 1,000 ML 100 ML IV (14:55)
--- NOTE | 2022-04-16 17:37 | PM.PREOP ---
Pre-operative Note Interval Note History & Physical reviewed/Exam performed by Physician: Yes Changes to H&P: No
[2022-04-16] MEDS: CEFAZOLIN 2 GM/100 ML PREMIX 100 ML IV (17:50)
[2022-04-16] MEDS: BUPIVACAINE 0.5% W/ EPI (PF) 30 ML VIAL INJ (18:18)
--- NOTE | 2022-04-16 18:19 | SUR.OPER ---
Supine on padded OR bed, head on pillow, safety belt at thigh, bilateral arms secured on padded arm board <90 degrees abduction. Legs uncrossed. Padded footboard in place. Tape over blanket to secure lower legs. Gel pad under bilateral heels. Patients cell phone placed in patients belongings bag in preop area. Patient stated that due to extensive metal in her right leg and a piece of metal this is protruding but not breaking skin, she did not want an Sequential Compression Device-SCD placed on her right lower leg. Patient did approve the Left lower leg. Risks and benefits of SCD's explained by this RN. Therefore during timeout in Surgery, physician made aware of patients refusal of an Operative SCD on her right lower extremity.
[2022-04-16] MEDS: ACETAMINOPHEN IV 1,000 MG/100 ML VIAL 400 MG IV (18:24)
[2022-04-16] MEDS: IOPAMIDOL 50 ML VIAL INJ (18:37)
[2022-04-16] MEDS: ONDANSETRON 4 MG/2 ML INJ IV (20:20)
[2022-04-16] MEDS: OXYCODONE IR 5 MG TABLET PO (20:20)
--- NOTE | 2022-04-16 20:39 | PM.OP.1 ---
Operative Date/Time/Diagnoses Pre-op diagnosis: Acute cholecystitis Post-op diagnosis: same Procedure & Clinicians Procedure: Laparoscopic cholecystectomy and intraoperative cholangiogram. Same procedure as scheduled: Yes Indications: Patient presented with acute cholecystitis several weeks ago but she had influenza and was coughing severely. She has been scheduled for a laparoscopic cholecystectomy and due to the fact that she had some elevation of her AST and ALT in the past she was scheduled for an intraoperative cholangiogram as well. Surgeon: Yocasta Shirley Click Yes if Unassisted: Yes Anesthesia Type: General Operative Notes Findings: 1. Chronic inflammation around the gallbladder 2. Nodular and friable liver 3. Cholangiogram showing possible choledochal cyst but no common bile duct stone 4. Lower abdominal adhesions were noted but not in the area of the surgery. Procedure in detail: Patient was taken to the operating room placed supine on the operating room table. A time-out was performed preoperative antibiotics were given bilateral SCDs were in place general general endotracheal anesthesia was induced. The abdomen was prepped and draped in the usual sterile fashion. Local anesthesia was infused above the umbilicus 11 blade scalpel was used to incise the skin electrocautery used to carry that incision down through the subcutaneous tissues the anterior abdominal wall fascia was doubly grasped with 2 Guzman retractors and elevated the abdomen was entered sharply under direct visualization using an open Kunal technique. The balloon trocar was placed into the abdomen after 2 stay sutures were placed in the fascial wall. The abdomen was then insufflated. She tolerated insufflation well. The laparoscope was introduced into the abdomen there was no evidence of entry injury. There were adhesions in the lower abdomen but those would not interfere with our gallbladder surgery. There was some chronic adhesions of the omentum to the anterior of the gallbladder and the stomach also had some adhesions to the gallbladder as well. These were taken down during the course of dissection using a combination of sharp and electrocautery. The gallbladder was entered inadvertently during the surgery, with some spillage of bile. A critical view was obtained and 2 clips were placed on the artery which was then ligated. One clip was placed on the stay side of the gallbladder an incision was made in the cystic duct. At this point the catheter was threaded into the cystic duct. Cholangiogram was obtained. There were no filling defects indicating any stones in the common bile duct. However it seemed to me that the common bile duct was a little bit dilated. Perhaps a choledochal cyst. Next the cystic duct was doubly clipped on the stay side and the incision was made in 2 a transection. The gallbladder was then relieved from the gallbladder fossa wall using electrocautery.
== END 2022-04-16 20:56 | disposition home or self-care (01) ==
PROVIDERS: Surgery; PCP Internal Medicine; Referring Provider Surgery; Visit Provider Surgery
PROC: 0FT44ZZ Resection of Gallbladder, Percutaneous Endoscopic Approach (ICD-10-PCS; CPT 47562; principal; 2022-04-16 15:30)
DX: K80.10 Calculus of gallbladder with chronic cholecystitis without obstruction (principal); K82.8 Other specified diseases of gallbladder; K76.89 Other specified diseases of liver
CPT/HCPCS: 47563; 74018; 76000; 82962; J0131; J0690; J1100; J2250; J2405; J2704; J3010

== ENCOUNTER 2022-09-07 23:58 | Emergency (ER) | payer MEDICARE, OTHER, SELFPAY ==
[2022-03-08 19:22] VITALS: BMI 34.4
--- NOTE | 2022-09-07 23:59 | ED_ITS ---
HPI - General Adult General Chief complaint: Extremity Problem,Nontraumatic Stated complaint: RT LEG PAIN Time Seen by Provider: 09/08/22 00:00 History of Present Illness HPI narrative: 71-year-old smoker with history of hypertension, hyperlipidemia and diabetes and prior crush injury with neurologic pain to her right lower extremity many years ago presents with both grandson's and a chief complaint of a relatively sudden pain and swelling to her right lower leg [id number]. She denies any trauma or injury and has had no fever or chills. She denies any overuse repetitive action with a past day or 2. She denies CP or SOB. She states that the swelling has been coming and going over the past few hours and feels worse behind the knee and laterally. She denies any medial thigh pain. She additionally states that she feels like the pain is radiating up along her lateral leg into her hip or perhaps coming down from her hip she can not tell. She denies any history of back pain or sciatica. She denies loss of control of bowel or bladder, she does not use blood thinners. She denies any lower extremity weakness Related Data Home Medications Medication Instructions Recorded Confirmed atenolol 50 mg tablet 25 mg PO DAILY 10/04/17 04/16/22 estradiol 1 mg tablet (Estrace) 0.5 mg PO DAILY 10/04/17 04/16/22 gabapentin 300 mg capsule 600 mg PO TID 10/04/17 04/16/22 metformin 500 mg tablet 500 mg PO DAILY 10/04/17 04/16/22 zolpidem 5 mg tablet 10 mg PO BEDTIME 10/04/17 04/16/22 albuterol sulfate 90 mcg/actuation 2 puff inhalation Q4H PRN Wheezing 10/24/17 04/09/22 aerosol inhaler lisinopril 20 mg tablet 20 mg PO DAILY 04/13/22 04/16/22 Previous Rx's Medication Instructions Recorded docusate sodium 100 mg capsule 100 mg PO BID #20 caps 04/16/22 (Colace) ibuprofen 600 mg tablet 600 mg PO QID #20 tabs 04/16/22 oxycodone-acetaminophen 5 mg-325 1 tab PO Q6H PRN pain #14 tabs 04/16/22 mg tablet (Percocet) cyclobenzaprine 10 mg tablet 10 mg PO TID PRN muscle spasm #14 05/31/23 tabs ketorolac 10 mg tablet 10 mg PO Q6H PRN pain #14 tabs 09/08/22 oxycodone-acetaminophen 5 mg-325 1 tab PO Q4-6H PRN pain #14 tabs 09/08/22 mg tablet (Percocet) Allergies Allergy/AdvReac Type Severity Reaction Status Date / Time erythromycin base Allergy Intermediate skin rash, Verified 04/16/22 15:05 hives belladonna alkaloids Allergy unknown Verified 04/16/22 15:05 metoclopramide [From Reglan] Allergy unknown Verified 04/16/22 15:05 Sulfa (Sulfonamide Allergy patient Verified 04/16/22 15:05 Antibiotics) does not recall, possibly nausea/vomiting cephalexin [From Keflex] AdvReac Severe nausea and Verified 04/16/22 15:05 vomiting prochlorperazine AdvReac Severe psych Verified 04/16/22 15:05 [From Compazine] reaction amlodipine AdvReac Intermediate headache Verified 04/16/22 15:05 and flushing levofloxacin [From Levaquin] AdvReac Intermediate other Verified 04/16/22 15:05 hydrochlorothiazide AdvReac Mild muscle Verified 04/16/22 15:05 cramps nifedipine [From Procardia] AdvReac Unknown intolerance Verified 04/16/22 15:05 Review of Systems Review of Systems Narrative: GENERAL: Denies chills, fatigue, malaise, fever, sweats. HEENT: Denies sinus pain, ear pain, sore throat, difficulty swallowing, dizziness. RESPIRATORY: Denies dyspnea, cough, wheezing, hemoptysis, sputum. CARDIOVASCULAR: Denies chest pain, palpitations, orthopnea, edema, GASTROINTESTINAL: Denies nausea, vomiting, abdominal pain, diarrhea, constipation, melena. : Denies dysuria, frequency, incontinence, hematuria, urinary retention. MUSCULOSKELETAL: See HPI SKIN: Denies rash, skin lesions, or other NEUROLOGIC: See HPI PSYCHIATRIC: No concerning psychosocial issues. 12 point review of systems is negative except for those stated above Patient History Medical History Aftercare following left ankle joint replacement surgery Chronic pain syndrome Hyperlipidemia associated with type 2 diabetes mellitus Hypertension associated with diabetes Musculoskeletal disorder Non-insulin dependent type 2 diabetes mellitus Tibia fracture Surgical History H/O hysterectomy with oophorectomy History of ankle surgery Hx of appendectomy Social History household members: family Smoking Status: Current every day smoker alcohol intake: never Smoking Status: Current every day smoker tobacco type: vaping alcohol intake frequency: 0-2 drinks per day Substance Use Type: marijuana Exam Narrative Exam Narrative: GENERAL: [71] year old patient appears stated age. Well-developed patient, in mild distress. HEAD: Atraumatic. Normocephalic. EYES: Pupils equal round and reactive. Extraocular motions intact. No scleral icterus. No injection or drainage. ENT: Nose without bleeding, purulent drainage. Throat without erythema, tonsillar hypertrophy or exudate. Airway patent. NECK: Trachea midline. Non tender CARDIOVASCULAR: Regular rate and rhythm without murmurs, gallops, or rubs. RESPIRATORY: Clear to auscultation. Breath sounds equal bilaterally. No wheezes, rales, or rhonchi. GASTROINTESTINAL: Abdomen soft, non-tender, nondistended. EXTREMITIES: NO obvious swelling, redness or warmth, no lymphangitis. Painful to palp posterior knee and lateral lower leg. 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 Patient exam notes decreased range of motion and muscle spasm, but no CVA tenderness, or vertebral point tenderness. There are no symptoms of cauda equina such as saddle anesthesia, and decreased reflexes, decreased sensation or strength. NEURO: AOx3. SKIN: No rash or erythema of visible areas Initial Vital Signs Initial Vital Signs: Vital Signs Temperature 97 F L 09/08/22 00:00 Pulse Rate 92 H 09/08/22 00:00 Respiratory Rate 20 09/08/22 00:00 Blood Pressure 231/109 H 09/08/22 00:00 Pulse Oximetry 97 09/08/22 00:00 Oxygen Delivery Method Room Air 09/08/22 00:00 Course Orders Ordered: ED Orders 09/08/22 00:10 periph venous low extrem rt Stat Discontinued Medications Cyclobenzaprine HCl (Cyclobenzaprine 10 Mg Prepack) 1 bottle MISC SEEINSTR ONE Stop: 09/08/22 01:33 Oxycodone/Acetaminophen (Oxycodone/Acetaminophen 5/325 Tablet) 1 tab PO NOW ONE Stop: 09/08/22 00:13 Last Admin: 09/08/22 00:18 Dose: 1 tab Documented By: Oxycodone/Acetaminophen (Oxycodone/Apap 5/325 Prepack) 1 bottle MISC SEEINSTR ONE Stop: 09/08/22 01:33 Vital Signs Vital signs: Vital Signs - 8 hr 09/08/22 00:00 09/08/22 01:25 Temperature 97 F L Pulse Rate 92 H 66 Respiratory Rate 20 16 Blood Pressure 231/109 H 214/93 H Pulse Oximetry 97 96 Oxygen Delivery Method Room Air Room Air Medical Decision Making MDM Narrative Medical decision making narrative: [71] year old patient presents with pain and perceived swelling of right leg [id number] Multiple etiologies for patient's symptoms considered including, but not limited to: [Muscle spasm versus DVT versus radicular symptoms versus other] Prior Charts reviewed in our EMR Primary Historian: patient Imaging reviewed: No DVT noted Patient's symptoms improved over duration of stay with above-stated therapies. Patient with reassuring history and physical exam, multiple diagnoses considered as noted above. DVT considered unlikely given normal ultrasound. Muscle spasm certainly considered given history and physical. Radicular symptoms considered given radiation of pain. Patient without fever, takes no blood thinners, no signs of cauda equina or evidence of neurosurgical emergency. She does already take gabapentin and given her history of diabetes we discussed the use of steroids but elect to hold off given its potential to contribute to hyperglycemia. Patient encouraged to take anti-inflammatories, will be prescribed pain medications and antispasm medications. Encouraged to follow closely with her care team, return precautions including worsening pain, swelling, redness, systemic complaints such as fever, chills, nausea or vomiting as well as chest pain or shortness of breath or other concerning symptoms Findings and discharge diagnosis discussed with patient/family followed by verbalization of understanding Return precautions discussed with patient/family whom verbalize understanding of diagnosis and plan Discharge Plan Departure Patient Disposition: Home Clinical Impression: Acute pain of right lower extremity Instructions: DI for Leg Pain Activity Restrictions/Additional Instructions: *You have been diagnosed with [ acute leg pain. As we discussed your history and physical exam are reassuring in the ultrasound shows no sign of DVT.] *What to do: *Please continue to take your regular medications as directed. [ x] New medication prescriptions sent to your pharmacy: [ [facility]] [ ] New medication written as a paper prescription [ ] No new medications given *Please follow up with your primary care provider in 2-3 days, call for an appointment. Let them know you were seen in the Emergency Department and that we ask that you be seen in follow up. We will electronically transmit a record of today's note if your PCP is in our system *If you do not have a primary care provider please contact the [facility] Resource line at [phone]. They will ask some questions about your medical history and help get you set up with a doctor in the community. *Return to Emergency Department if you should have any new, worsening or concerning symptoms, such as [fever greater than 101 F, shaking chills, worsening pain, persistent vomiting or other bothersome symptoms] Prescriptions: New cyclobenzaprine 10 mg tablet 10 mg PO TID PRN (Reason: muscle spasm) Qty: 14 0RF ketorolac 10 mg tablet 10 mg PO Q6H PRN (Reason: pain) Qty: 14 0RF oxycodone-acetaminophen [Percocet] 5-325 mg tablet 1 tab PO Q4-6H PRN (Reason: pain) Qty: 14 0RF No Action metformin 500 mg tablet 500 mg PO DAILY Patient Comments: with dinner estradiol [Estrace] 1 mg tablet 0.5 mg PO DAILY gabapentin 300 mg capsule 600 mg PO TID zolpidem 5 mg tablet 10 mg PO BEDTIME atenolol 50 mg tablet 25 mg PO DAILY albuterol sulfate 90 mcg/actuation Hfa Aerosol Inhaler 2 puff INHALATION Q4H PRN (Reason: Wheezing) lisinopril 20 mg tablet 20 mg PO DAILY Patient Comments: TAKE 1 TABLET BY MOUTH TWICE DAILY oxycodone-acetaminophen [Percocet] 5-325 mg tablet 1 tab PO Q6H PRN (Reason: pain) Qty: 14 0RF Rx Instructions: May take 1-2 tabs as needed every 6 hours. docusate sodium [Colace] 100 mg capsule 100 mg PO BID Qty: 20 0RF Rx Instructions: Take while taking Percocet for pain to prevent constipation ibuprofen 600 mg tablet 600 mg PO QID Qty: 20 0RF Rx Instructions: Alternate with Percocet if Percocet is too strong you can stop taking Percocet and alternate with Tylenol. Referrals: Gunnar Bhat MD [Primary Care Provider] - Stand Alone Forms: Patient Portal/API
[2022-09-08] VITALS: BP 231/109; PULSE 92; RESP 20; TEMP 36.1; O2SAT 97; BMI 31.0
--- NOTE | 2022-09-08 00:10 | DI.US.S_ITS ---
PROCEDURE: US PERIPH VENOUS LOW EXTREM RT INDICATIONS: PAIN AND SWELLING TECHNIQUE: Real-time imaging, as well as color and pulse Doppler interrogation, were performed of the lower extremity deep veins from the inguinal ligament to the popliteal fossa. COMPARISON: None. FINDINGS: The common femoral, femoral and popliteal veins are normally compressible, and free of intraluminal thrombus. Color and pulse Doppler demonstrate normal phasic intraluminal flow. There is normal augmentation response to distal compression maneuver. IMPRESSION: 1. No evidence of deep venous thrombosis in the right lower extremity. Dictated by: Hola Kendrick M.D. on 09/08/2022 at 2:39 Approved by: Hola Kednrick M.D. on 09/08/2022 at 2:40
[2022-09-08] MEDS: OXYCODONE/ACETAMINOPHEN 5/325 TABLET 1 TAB PO (00:18)
[2022-09-08 01:25] VITALS: BP 214/93; PULSE 66; RESP 16; O2SAT 96
[2022-09-08] MEDS: OXYCODONE/APAP 5/325 PREPACK 1 BOTTLE MISC (01:41)
[2022-09-08] MEDS: CYCLOBENZAPRINE 10 MG PREPACK 1 BOTTLE MISC (01:41)
[2022-09-08 01:48] VITALS: BP 207/95; PULSE 68; RESP 18; O2SAT 97
== END 2022-09-08 01:49 | disposition home or self-care (01) ==
PROVIDERS: Emergency Provider Emergency Medicine; PCP Internal Medicine
DX: M79.661 Pain in right lower leg (principal)
CPT/HCPCS: 93971; 99283

== ENCOUNTER → 2022-10-15 17:18 | Outpatient (CLI) | payer MEDICARE, OTHER, SELFPAY ==
[2022-03-08 19:22] VITALS: BMI 34.4
--- NOTE | 2022-10-15 17:25 | DI.MRI.S_ITS ---
PROCEDURE: MR AB PANCREATIC/MRCP PROTOCOL INDICATIONS: Choledochal cyst TECHNIQUE: Coronal HASTE through the abdomen, axial 2-D FLASH in- and [id number], and breath-hold T2 FSE with fat saturation through the biliary system and pancreas. Oblique coronal and axial thin-slice HASTE, radial thick-slab HASTE centered on the extrahepatic bile ducts. Intravenous secretin: Not requested. COMPARISON: [facility], CT, CT ABDOMEN PELVIS W CON, 06/10/2021, 21:46. FINDINGS: Image quality: Excellent. Liver: No solid mass. Moderate to severe patent steatosis. Gallbladder and biliary tree: Gallbladder surgically absent. Common bile duct measures up to 1.4 centimeter. No filling defect. Smooth tapering as the duct approaches the ampulla. Spleen: Normal size. Pancreas: No ductal dilation. 4 millimeter T2 hyperintense cystic lesion within the body of the pancreas, with close association to the pancreatic duct (series 5, image 19). No ductal dilation or nodularity. Adrenal glands: No adrenal nodules. Kidneys: No hydronephrosis. No solid mass. No complex renal cysts which requires follow-up. Nodes and vessels: No retroperitoneal or mesenteric adenopathy by size criteria. Aorta and inferior vena cava are normal in size. Bowel and peritoneum: Unenhanced bowel loops are normal in caliber. No free fluid. Colonic diverticulosis without evidence of diverticulitis. Duodenal diverticulum extending off the posterior margin segment 2/3. Lung bases: No basal pleural effusions. Heart size is normal. Bones and soft tissues: No ventral hernias. Bone marrow is of normal overall signal. IMPRESSION: Cholecystectomy. Common bile duct measures up to 1.4 centimeters, with smooth tapering as it approaches the ampulla. Findings could indicate a normal post cholecystectomy state, alternatively ampullary stricture or less likely ampullary mass. Choledochal cyst is also consideration, but less so given the diffuse nature of distension. Moderate to severe hepatic steatosis. In the absence of alcohol use or other confounding factors, elevated LFTs may indicate non-alcoholic steatohepatitis (VIEIRA). 4 millimeter T2 hyperintense cystic lesion within the pancreatic body, with close association to the pancreatic duct. No nodularity or ductal dilation. Findings likely represent a side branch IPMN. Recommend 2 year follow-up with MRI/MRCP per ACR consensus guidelines. Dictated by: Ramirez Whatley M.D. on 10/18/2022 at 9:12 Approved by: Ramirez Whatley M.D. on 10/18/2022 at 9:18
== END ==
PROVIDERS: PCP Internal Medicine; Referring Provider Surgery; Visit Provider Surgery
DX: Q44.4 Choledochal cyst (principal); K86.9 Disease of pancreas, unspecified; K76.0 Fatty (change of) liver, not elsewhere classified; Z90.49 Acquired absence of other specified parts of digestive tract
CPT/HCPCS: 74183; A9579